=== PATIENT | female | born 1945 | race Caucasian/White ===

== ENCOUNTER 2017-09-25 07:49 | Day surgery (SDC) | payer MEDICARE ==
[~2017-09-25] VITALS: Ht 170.2 cm; Wt 108.9 kg
[~2017-09-25 07:49] MED LIST: METOPROLOL SUCC50 MG PO; OMEPRAZOLE20 MG PO
[2017-09-25] MEDS ORDERED: VITAMIN D-32000 UNI1 PO (08:03)
[2017-09-25] MEDS ORDERED: IRON18 MG PO (08:03)
--- NOTE | 2017-09-25 10:45 | NUR ---
09/25/17 1045 Rina Leavitt 1026 PT ARRIVED DROWSY AND WAKE OFF AND ON. PT DENIES PAIN AND NAUSEA. RESO EVEN AND UNLABORED. 1043 PT SITTING IN HIGH FOWLERS AND SIPPING WATER. PT ABLE TO PUT DENTURES IN HER MOUTH.
--- NOTE | 2017-10-31 09:17 | OR ---
[facility] [address], [place] [address] Signed DATE OF OPERATION: 09/25/2017 SURGEON: Kyara Sauceda MD PREOPERATIVE DIAGNOSES: 1. Iron deficiency anemia. 2. Mother with colon polyps in her 70s. 3. Personal history of colonic polyp at 20 cm in 2016. 4. Diverticulosis. 5. Internal hemorrhoids. POSTOPERATIVE DIAGNOSES: 1. Mild punctate hemorrhagic gastritis. 2. Moderate simpson diverticulosis. 3. Jdvmfwy-dm-wxelvyex internal hemorrhoids. PROCEDURES PERFORMED: 1. Esophagogastroduodenoscopy with CLOtest and biopsies of the antrum and pyloric bulb. 2. Colonoscopy without biopsy. ESTIMATED BLOOD LOSS: None. INDICATIONS FOR PROCEDURE: Janell is a 71-year-old female, who came to us in 2016 for a colonoscopy. We know that her mother had colonic polyps in her 70s and we found a polyp for Janell at 20 cm. She also has an extremely long redundant colon with a very long tortuous sigmoid colon. Consequently, her prep was not the best, we would ask her to come back on a short interval. She was also known to have internal hemorrhoids and simpson diverticulosis, but in the meantime, she did develop iron deficiency anemia and so she was asked to see me for both upper and lower endoscopy. I met with Janell and her , who I have known for quite some time. I gave them pamphlets on upper and lower endoscopy. We reviewed the nature of the 2 tests along with the risks including, but are not limited to gas bloating, crampy abdominal pain, bleeding, perforation, requiring surgery, and missed diagnosis. We also discussed the need for IV conscious sedation. She had expressed understanding and wished to proceed. DESCRIPTION OF PROCEDURE: Janell was taken into our endoscopy suite and placed in a supine semi-recumbent position. She was given preoperative antibiotics because of her joint replacements. The posterior oropharynx was anesthetized with Hurricaine spray. A bite block was Electronically Signed By: KYARA SAUCEDA MD 09/25/17 1138 Electronically Signed By: KYARA SAUCEDA MD 10/31/17 0920 PATIENT NAME: JANELL CORREA OPERATIVE REPORT DATE OF : 45 REPORT #: [id number] PHYSICIAN: KYARA SAUCEDA MD PCP: Norbert YODER MD REPORT IS CONFIDENTIAL AND NOT TO BE RELEASED WITHOUT AUTHORIZATION [facility] [address], [place] [address] Signed utilized for the case. The adult gastroscope was then introduced. She was given a total of 9 mg of Versed and 175 mcg of fentanyl to cover both cases. The adult gastroscope was passed out into the stomach and into the duodenum. The pyloric bulb showed a tiny bit of redness. We went ahead and took a biopsy in that area. The stomach showed some mild distal punctate hemorrhagic gastritis. We took biopsies of the antrum for CLOtest as well as pathologic review. Upon retroflexion of the scope, there was no hiatal hernia, there was no gastric or esophageal varices. The scope was withdrawn up through the area of the GE junction, which was compliant without stricture. The Z-line remains intact. There was no Gould's mucosa, no distal esophagitis. The middle and upper esophagus were unremarkable. After this, the gas was suctioned out, the gastroscope removed. Janell tolerated the upper endoscopy quite well. Janell was then rotated into the left lateral decubitus position. A digital rectal exam was then performed. This was unremarkable. The adult colonoscope was introduced and advanced under direct visualization. As before, she has a very long redundant tortuous colon. It took some time to get through the sigmoid colon and then the camera continued to drag in the sigmoid colon, so it took extra sedation and extra abdominal compression, and rotating Janell into the supine position in order to get the scope down to the cecum itself. She took a double prep this time and it was much better. Even then with her diverticula, she had stool scattered around the colon, although much improved from previously. The scope was then slowly withdrawn. We saw all the simpson diverticulosis. No polyps on this occasion. The rectum was unremarkable. She does have deusdvo-lf-ugqdtymw internal hemorrhoid columns. After this, the gas was suctioned out. The colonoscope removed. Janell tolerated the procedure well. RECOMMENDATIONS: I will see Janell back in my office in 7 to 14 days to review her results. Kyara Sauceda MD ALB/MODL /[id number] cc: Norbert Yoder MD Electronically Signed By: KYARA SAUCEDA MD 09/25/17 1138 Electronically Signed By: KYARA SAUCEDA MD 10/31/17 0920 PATIENT NAME: JANELL CORREA OPERATIVE REPORT DATE OF : 45 REPORT #: [id number] PHYSICIAN: KYARA SAUCEDA MD PCP: Norbert YODER MD REPORT IS CONFIDENTIAL AND NOT TO BE RELEASED WITHOUT AUTHORIZATION [facility] [address] [place], [place] [address] Signed Copies: Norbert YODER MD ~ Electronically Signed By: KYARA SAUCEDA MD 09/25/17 1138 Electronically Signed By: KYARA SAUCEDA MD 10/31/17 0920 PATIENT NAME: JANELL CORREA OPERATIVE REPORT DATE OF : 45 REPORT #: [id number] PHYSICIAN: KYARA SAUCEDA MD PCP: Norbert YODER MD REPORT IS CONFIDENTIAL AND NOT TO BE RELEASED WITHOUT AUTHORIZATION
== END 2017-09-25 11:05 | disposition home or self-care (01) ==
LOC: DS 07:49 → OPS 07:49 → DS 09:00 → OPS 09:00
PROVIDERS: Colon & Rectal Surgery
PROC: 0DB78ZX Excision of Stomach, Pylorus, Via Natural or Artificial Opening Endoscopic, Diagnostic (ICD-10-PCS; 2017-09-25)
PROC: 0DJD8ZZ Inspection of Lower Intestinal Tract, Via Natural or Artificial Opening Endoscopic (ICD-10-PCS; principal; 2017-09-25 09:00)
PROC: 0DB98ZX Excision of Duodenum, Via Natural or Artificial Opening Endoscopic, Diagnostic (ICD-10-PCS; 2017-09-25 09:00)
DX: K64.8 Other hemorrhoids (principal); K57.30 Diverticulosis of large intestine without perforation or abscess without bleeding; K29.51 Unspecified chronic gastritis with bleeding; K29.80 Duodenitis without bleeding; D50.9 Iron deficiency anemia, unspecified; I10 Essential (primary) hypertension; E78.5 Hyperlipidemia, unspecified; E55.9 Vitamin D deficiency, unspecified; E66.9 Obesity, unspecified; E03.9 Hypothyroidism, unspecified; Z98.890 Other specified postprocedural states; Z86.010 Personal history of colon polyps; Z83.71 Family history of colonic polyps; Z79.899 Other long term (current) drug therapy; Z87.891 Personal history of nicotine dependence; Z88.8 Allergy status to other drugs, medicaments and biological substances; Z68.38 Body mass index [BMI] 38.0-38.9, adult
CPT/HCPCS: 86677; 88305; 99153; G0500; J2250; J3010

== ENCOUNTER 2019-12-03 06:46 | Emergency (ER) | payer MEDICARE ==
[~2019-12-03] VITALS: Ht 170.2 cm; Wt 90.3 kg
--- OUTSIDE RECORDS SUMMARY | ~2019-12-03 | XMS | Encounter Summary ---
Demographics + + + | Address | [address] | | | [place] [address] | + + + | Home Phone | | + + + | Preferred Language | Unknown | + + + | Marital Status | | + + + | Voodoo Affiliation | Unknown | + + + | Race | Unknown | + + + | Ethnic Group | Unknown | + + + Author + + + | Author | [facility] | | | and [place] | + + + | Organization | [facility] | | | and [place] | + + + | Address | Unknown | + + + | Phone | Unavailable | + + + Support + + +---------+ + | Name | Relationship | Address | Phone | + + +---------+ + | Chirag A Eden | ECON | Unknown | | + + +---------+ + Care Team Providers + +------+ + | Care Assistant Customer Service Manager Name | Role | Phone | + +------+ + PCP | Unavailable | + +------+ + Encounter Details +--------+ + + + + | Date | Type | Department | Care Team | Description | +--------+ + + + + | 05/21/ | Hospital | [facility] | | | | 2000 - | Encounter | MED CTR GENERIC IP | | | | | | CONV DEPT [address] | | | | 05/24/ | | [place], | | | | 2000 | | [place] [address] | | | | | | [phone] | | | +--------+ + + + + Social History + +-------+ +--------+------+ | Tobacco Use | Types | Packs/Day | Years | Date | | | | | Used | | + +-------+ +--------+------+ | Never Assessed | | | | | + +-------+ +--------+------+ + + + | Sex Assigned at | Date Recorded | | | | + + + | Not on file | | + + + documented as of this encounter Plan of Treatment Not on filedocumented as of this encounter Visit Diagnoses Not on filedocumented in this encounter"
--- OUTSIDE RECORDS SUMMARY | ~2019-12-03 | XMS | Encounter Summary ---
Demographics + + + | Address | [address] | | | [place] [address] | + + + | Home Phone | | + + + | Preferred Language | Unknown | + + + | Marital Status | | + + + | Nondenominational Affiliation | Unknown | + + + | Race | Unknown | + + + | Ethnic Group | Unknown | + + + Author + + + | Author | [facility] | | | and [place] | + + + | Organization | [facility] | | | and [place] [...] Team Providers + +------+ + | Care Informaticist Name | Role | Phone | + +------+ + PCP | Unavailable | + +------+ + Encounter Details +--------+ + + + + | Date | Type | Department | Care Team | Description | +--------+ + + + + | 11/29/ | Hospital | [facility] | | | | 2003 - | Encounter | MED CTR WOMENS | | | | | | [facility] [address] | | | | 12/01/ | | [place], | | | | 2003 | | [place] [address] | | | | | | [phone] | | | +--------+ + + + [...]
--- OUTSIDE RECORDS SUMMARY | ~2019-12-03 | XMS | Encounter Summary ---
Demographics + + + | Address | [address] | | | [place] [address] | + + + | Home Phone | | + + + | Preferred Language | Unknown | + + + | Marital Status | | + + + | Judaism Affiliation | Unknown | + + + | Race | Unknown | + + + | Ethnic Group | Unknown | + + + Author + + + | Author | [facility] | | | and [place] | + + + | Organization | [facility] | | | and [place] | [...] Team Providers + +------+ + | Care Account General Manager Name | Role | Phone | + +------+ + PCP | Unavailable | + +------+ + Encounter Details +--------+ + + + + | Date | Type | Department | Care Team | Description | +--------+ + + + + | 11/22/ | Hospital | [facility] | | | | 2003 | Encounter | MED CTR LABORATORY | | | | | | [address] [place] [place] | | | | | | [place] | | | | | | [address] | | | | | | [phone] | | | +--------+ + + + [...]
--- OUTSIDE RECORDS SUMMARY | ~2019-12-03 | XMS | Encounter Summary ---
Demographics + + + | Address | [address] | | | [place] [address] | + + + | Home Phone | | + + + | Preferred Language | Unknown | + + + | Marital Status | | + + + | Jainism Affiliation | Unknown | + + + | Race | Unknown | + + + | Ethnic Group | Unknown | + + + Author + + + | Author | [facility] | | | and [place] | + + + | Organization | 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 | | [address] | | | | | hip Primary | | [place] | | | | | | | [address] | | | | | osteoarthrit | | Phone: | | | | | is of left | | [phone] | | | | | hip [M16.12] | | Fax: | | | | | Procedures | | [phone] | | | | | [place] TOTAL | | | | | | | HIP | | | | | | | ARTHROPLASTY | | | +--------+--------+ + + + + Encounter Details +--------+ + + + + | Date | Type | Department | Care Team | Description | +--------+ + + + + | 04/27/ | Hospital | [facility] | Jeff Yeh MD | | | 2015 | Encounter | MED CTR XRAY [address] | [address] [facility] | | | | | [place] | [place] | | | | | [place] [address] | [address] | | | | | [phone] | [phone] | | | | | | | | +--------+ + + + + Social History + + + +--------+ + | Tobacco Use | Types | Packs/Day | Years | Date | | | | | Used | | + + + +--------+ + | Former Smoker | Cigarettes | 0.1 | 10 | Quit: 05/14/1989 | + + + +--------+ + + +---+---+---+ | Smokeless Tobacco: | | | | | Never Used | | | | + +---+---+---+ + + +---------+ + | Alcohol Use | Drinks/Week | oz/Week | Comments | + + +---------+ + | No | | | | + + +---------+ + + + + | Sex Assigned at | Date Recorded | | | | + + + | Not on file | | + + + documented as of this encounter Medications at Time of Discharge + + + +---------+ + + | Medication | Sig | Dispensed | Refills | Start | End Date | | | | | | Date | | + + + +---------+ + + | | Take 1 - 2 tablets | 30 | 0 | 12/18/20 | | | HYDROcodone-acetamin | by mouth EVERY 4 to | tablet | | 15 | | | ophen (NORCO) | 6 HOURS NEEDED | | | | | | 7.5-325 mg per | for Pain. | | | | | | tablet | | | | | | + + + +---------+ + + | metoprolol | Take 50 mg by mouth | | 0 | | | | tartrate (LOPRESSOR) | every evening. | | | | | | 50 mg tablet | | | | | | + + + +---------+ + + | aspirin 325 mg | Take 1 tablet by | 56 | 0 | 04/30/20 | | | tablet | mouth 2 times daily | tablet | | 15 | 6 | | | for 28 days. | | | | | + + + +---------+ + + | naproxen | Take 250 mg by mouth | | 0 | | | | (NAPROSYN) 250 mg | Twice daily as | | | | 5 | | tablet | needed. | | | | | + + + +---------+ + + documented as of this encounter Plan of Treatment Not on filedocumented as of this encounter Procedures + +--------+ + + + | Procedure Name | Priori | Date/Time | Associated Diagnosis | Comments | | | ty | | | | + +--------+ + + + | XR PELVIS 1 OR 2 VW | Routin | 04/27/2015 | | Results for this | | | e | 3:33 PM | | procedure are in the | | | | PST | | results section. | + +--------+ + + + documented in this encounter Results XR Pelvis 1 or 2 Vw (04/27/2015 3:33 PM PST) + + | Specimen | + + | | + + + + + | Narrative | Performed At | + + + | XR PELVIS 1 OR 2 VW 04/27/2015 3:18 PM HISTORY: intra op. | [facility] | | COMPARISON: Multiple priors FINDINGS: Intraoperative x-rays show | | | placement of hardware for left hip arthroplasty. IMPRESSION - | | | Left hip arthroplasty. Dictated and Signed by: Darvin Plata MD | | | Electronically signed: 04/27/2015 4:15 PM | | + + + + + | Procedure Note | + + | Doug, Rad Results In - 04/27/2015 4:19 PM PST XR PELVIS 1 OR 2 VW 04/27/2015 3:18 PM | | | | HISTORY: intra op. | | | | COMPARISON: Multiple priors | | | | FINDINGS: | | Intraoperative x-rays show placement of hardware for left hip arthroplasty. | | | | IMPRESSION - | | Left hip arthroplasty. | | | | Dictated and Signed by: Darvin Plata MD | | Electronically signed: 04/27/2015 4:15 PM | + + + +---------+ + + | Performing | Address | City/State/Zipcode | Phone Number | | Organization | | | | + +---------+ + + | [facility] | | | | + +---------+ + + documented in this encounter Visit Diagnoses Not on filedocumented in this encounter"
--- OUTSIDE RECORDS SUMMARY | ~2019-12-03 | XMS | Encounter Summary ---
Demographics + + + | Address | [address] | | | [place] [address] | + + + | Home Phone | | + + + | Preferred Language | Unknown | + + + | Marital Status | | + + + | Temple Affiliation | Unknown | + + + | Race | Unknown | + + + | Ethnic Group | Unknown | + + + Author + + + | Author | [facility] | | | and [place] | + + + | Organization | [facility] | | | and [...] Team Providers + +------+ + | Care Communications Technician Name | Role | Phone | + +------+ + PCP | Unavailable | + +------+ + Encounter Details +--------+ + + + + | Date | Type | Department | Care Team | Description | +--------+ + + + + | 05/01/ | Hospital | [facility] | | | | 1999 - | Encounter | MED CTR GENERIC OP | | | | | | CONV DEPT [address] | | | | 05/21/ | | [place], | | | | 2000 | | [place] [address] | | | | | | [phone] | | | +--------+ + + + [...]
--- OUTSIDE RECORDS SUMMARY | ~2019-12-03 | XMS | Encounter Summary ---
Demographics + + + | Address | [address] | | | [place] [address] | + + + | Home Phone | | + + + | Preferred Language | Unknown | + + + | Marital Status | | + + + | Synagogue Affiliation | Unknown | + + + | Race | Unknown | + + + | Ethnic Group | Unknown | + + + Author + + + | Author | [facility] | | | and [place] | + + + | Organization | [facility] | | | and [place] | [...] Team Providers + +------+ + | Care Systems Requirements Planner Name | Role | Phone | + [...] | is of left | | [facility] | | | | | hip Primary | | [place] | | | | | | | [address] | | | | | osteoarthrit | | Phone: | | | | | is of left | | [phone] | | | | | hip [M16.12] | | Fax: | | | | | Procedures | | [phone] | | | | | [place] TOTAL | | | | | | | HIP | | | | | | | ARTHROPLASTY | | | +--------+--------+ + + + + Encounter Details +--------+ + + + + | Date | Type | Department | Care Team | Description | +--------+ + + + + | 04/27/ | Hospital | [facility] | Jeff Yeh MD | Status post total | | 2015 - | Encounter | MED [facility] SUR[facility] | [address] | replacement of left | | | | [address] [place] | [place] | hip (Primary Dx) | | 04/30/ | | [place] [address] | [phone] | | | 2015 | | [phone] | [phone] | | | | | | | [...] + + documented as of this encounter Last Filed Vital Signs + + + + + | Vital Sign | Reading | Time Taken | Comments | + + + + + | Blood Pressure | 134/67 | 04/30/2015 8:00 AM | | | | | PST | | + + + + + | Pulse | 83 | 04/30/2015 8:00 AM | | | | | PST | | + + + + + | Temperature | 36.8 C (98.2 F) | 04/30/2015 8:00 AM | | | | | PST | | + + + + + | Respiratory Rate | 18 | 04/30/2015 8:00 AM | | | | | PST | | + + + + + | Oxygen Saturation | 96% | 04/30/2015 8:00 AM | | | | | PST | | + + + + + | Inhaled Oxygen | - | - | | | Concentration | | | | + + + + + | Weight | 117.9 kg (260 lb) | 04/27/2015 5:30 PM | | | | | PST | | + + + + + | Height | 170.2 cm (5' 7") | 04/27/2015 5:30 PM | | | | | PST | | + + + + + | Body Mass Index | 40.72 | 04/27/2015 5:30 PM | | | | | PST | | + + + + + documented in this encounter Discharge Summaries Meenakshi Phan PA-C - 04/29/2015 4:50 PM PSTFormatting of this note might be differe nt from the original. TOTAL HIP ARTHROPLASTY DISCHARGE SUMMARY ADMISSION DATE: 04/27/2015 DISCHARGE DATE: 04/30/15 ADMITTING DIAGNOSIS: Left hip degenerative joint disease. DISCHARGE DIAGNOSIS: 1. Left hip degenerative joint disease. 2. Syncope, orthostatic induce d MAJOR INTERVENTION:Left total hip arthroplasty. DISCHARGE DISPOSITION: The patient is being discharged to home and will do home-directed ex ercises on an outpatient basis. Hip dislocation precautions have been instructed to the lauri ent and the incision will be kept clean and dry. Weight-bearing is as tolerated with a walke r. A follow up appointment has been scheduled in my office in 5-7 days for a wound check, st aple removal and radiographs. DISCHARGE MEDICATIONS The patient will resume her usual medications. In addition,she will take: Aspirin 325mg BID daily x 4 weeks. Lortab 7.5/325 as needed for pain. HOSPITAL COURSE: The patient was admitted and taken to the operating room, at which time, s he underwent a left total hip arthroplasty without complications. For further details, kathryn steele see the dictated operative report in the chart. Postoperatively, the patient did well, remained afebrile, with stable vital signs. Postoper atively, there was an intact neurovascular examination in her left lower limb. The patient received Ancef preoperatively and for 24 hours postoperatively, and had no sign s or symptoms of infection. The patient had minimal bleeding on the evening of the surgery, that resolved, and her wound was with very minimal drainage by the time of her discharge. The patient was started on Aspirin 325mg BID the day after surgery. There was no evidence of thromboembolic disease. Hematocrit stabilized at Lab Results Component Value Date HCT 26.4* 04/29/2015 . There was no need for a blood transfusion. The patient was seen by physical therapy and allowed weightbearing as tolerated with a walk er, progressing very well with her mobility. she was ready for discharge home on postop day number three. documented in t his encounter Discharge Instructions Instructions Zoe Olson, PharmD - 04/29/2015 Discharge Instructions for Hip Replacement Surgery You had a hip replacement surgery. This means your natural hip was replaced with an artific ial joint (prosthesis). You may be recovering at home or in a rehabilitation facility. Eithe r way, you must take care of your new hip. Do this by moving and sitting the way you were ta ught in the hospital. Also, be sure to see your doctor for follow-up visits, and return to a ctivity slowly. Because a total hip replacement is major surgery, it will be a few months be fore you can move comfortably. Home Care Take your medications exactly as directed on the separate Medication Reconciliation shee t. Typically you will resume your routine medications and in addition will have a prescripti on a pain pill. You will also take aspirin 325mg twice daily for four weeks. Please pick t his up at your pharmacy [id number], the enteric coated (EC) are preferred to protect y our stomach. Do not take ani-inflammatories (NSAIDs) while on this high dose aspirin. Thi s includes ibuprofen, motrin, aleve, naproxen, Advil and baby (81mg) aspirin. You may resum e those as needed after finished with this high dose aspirin. Tylenol (acetaminophen) and y our pain pill are safe to take. Don t drive until your doctor says it s okay. And never drivewhile taking narcotic pain medication. Wear the support stockings you were given in the hospital. Wear them for 6 weeks post-op eratively To relieve discomfort at night, get up and move around as needed Incision Care A waterproof (Aquacel) dressing has been applied. It is OK to shower with this in place. NO tub soaks. Leave this Aquacel dressing in place until your first post-op visit unless it becomes wet or visibly soiled. Avoid infection by washing your hands often. If an infection occurs, it will need to be treated immediately. So call your doctorright awayif you think you may have an infection . Symptoms include a fever or an incision that leaks white, green, or yellow fluid. Avoid soaking yourincision in water (no hot tubs, bathtubs, swimming pools) until your doctor says it s okay. Sitting and Sleeping It is ok to sleep on your side, just remember to place a pillow between your knees Moving Safely Use a walker for 4 weeks. And remember to ask for help from others when you need it. Follow the posterior hip precautions You may put as much weight as is comfortable on the affected leg unless you have been to ld otherwise. Walk often and do theprescribed exercises as instructed. Arrange your household to keep the items you need within reach. Remove electrical cords, throw rugs, and anything else that may cause you to fall. Use nonslip bath mats, grab bars, an elevated toilet seat, and a shower chair in your ba throom. Follow-Up Make sure you keep the follow-up appointment with scheduled about 10 days from your surgery date. You may confirm the appointment date and time by calling [phone] When to Seek Medical Attention Call [phone] right awayif you have any of the following: Chest pain Shortness of breath Otherwise, call your doctor immediately if you have any of the following: Increased hip pain Pain or swelling in your calf or leg Fever [id number] shaking chills Excessive swelling, increased drainage or redness around the incision Swelling, tenderness, or cramps in your leg Do not exceed 4,000 mg of acetaminophen (Tylenol) per day. Hydrocodone-acetaminophen ([place] ) and Oxycodone-acetaminophen (Percocet) have 325 mg acetaminophen per tablet. Regular stre ngth acetaminophen is 325 mg per tablet. Extra strength has 500 mg per tablet. Do not take ani-inflammatories (NSAIDs) while on this high dose aspirin. This includes ibu profen, motrin, aleve, naproxen, Advil and baby (81mg) aspirin. Do not consume alcohol while taking opioid mediations. If constipation arises, try docusate-senna one tablet twice daily; milk of magnesia 30 mL o nce each night; or Miralax one capful (17 grams) dissolved in half a cup of water once daily for 3 days. If constipation does not resolve within 3 days after discharge, contact the do solange's office. documented in this encounter Medications at Time of Discharge [...] + + documented as of this encounter Progress Notes Zoe Olson, PharmD - 04/30/2015 10:00 AM Rowena Harmon is s/p left total hip arthroplasty and discharged home today (04/30/2015) Taught AVS education to patient. Educated patient on new blood thinner and pain medications . I explained indication, how to take, possible side effects, when to contact physician, and monitor parameters. We discussed aspirin: S/S clotting (stroke/DVt/PE), bleeding (bruising, bleeding, GI/), a voidance of additional NSAIDs, and when to seek medical attention. The patient was encourage d to ambulate often and to participate in PT. We discussed not to exceed 4,000 mg of acetaminophen per day. Patient was advised not to co nsume alcohol while taking opioid mediations. We discussed normal bowel movements should be about 1 to 2 per week, if constipation should arise patient may try senna-s, milk of mag or Miralax OTC. The patient verbalized understanding of the above and all questions were answered. Pharmaci st will follow-up with patient in one to two business days. Patient was provided with a cristal nciled discharge medication list as part of their AVS instructions. Encouraged patient to sh are medication list with healthcare providers and keep list current. Zoe Olson PHARMD 04/30/2015 10:00 Meenakshi Mcgee PA-C - 04/29/2015 7:31 AM PSTFormatting of this note might be different from the origin al. Subjective: Post-Operative Day: 2 Days Post-Op Status Post AMAURY Left Systemic or Specific Complaints:Mild incisional pain, doing well. No new syncopal episodes . Objective: Patient Vitals for the past 24 hrs: BP Temp Temp src Pulse Resp SpO2 04/28/15 2300 133/51 mmHg 36.2 C (97.2 F) Oral 67 16 91 % 04/28/152036 - - - - - 93 % 04/28/15 1910 129/52 mmHg 36.3 C (97.3 F) Oral 73 16 93 % 04/28/15 1800 144/62 mmHg - - 69 18 96 % 04/28/15 1613 - - - 67 - 93 % 04/28/15 1530 - - - 62 - 97 % 04/28/15 1409 141/53 mmHg - - 67 17 99 % 04/28/15 1332 118/56 mmHg - - 65 18 99 % 04/28/15 1224 119/43 mmHg - - 65 - - 04/28/15 1154 127/62 mmHg 36.8 C (98.2 F) Oral 62 - 99 % 04/28/15 1151 129/54 mmHg - - 57 18 100 % 04/28/15 1135 - - - 62 - 96 % 04/28/15 1130 108/54 mmHg - - 61 17 91 % 04/28/15 1125 - - - 59 - 90 % 04/28/15 1122 94/54 mmHg - - 57 16 92 % 04/28/15 0733 142/64 mmHg 36.8 C (98.2 F) Oral 61 18 93 % I/O last 24 Hours: In: 3501 [P.O.:2602; I.V.:399; IV Piggyback:500] Out: 4175 [Urine:4175] General: Alert and oriented, no distress Wound: Wound clean and dry no evidence of infection. Operative limb: Circulation: warm, well perfused, No evidence of DVT seen on physical exam. CMS: Neuro : intact Data Review Recent Results (from the past 24 hour(s)) Hemoglobin and Hematocrit Result Value Ref Range Hgb 8.3 (L) 11.5-16.0 g/dL Hct 26.4 (L) 34.0-47.0 % Assessment: Status Post AMAURY Expected acute blood loss anemia Doing well Nurse reported concern for moderately low O2 sats BPs improved Plan: Continue current postoperative course Anemia protocol PT for ambulation, ROM OT for ADLs Encourage IS and deep breathing Anticipate discharge tomorrow Christiana Oliveira RN - 04/28/2015 2:10 PM PSTPt visiting with family, vss, ate a good lunch and sta chase she feels so much better. IV bolus completed Electronically signed by: Christiana Encinsa RN 04/28/2015 14:11 Christiana Birmingham RN - 04/28/2015 11:46 AM PSTPt states feeling much better, no further nausea, bp now 129/54, hr 60. No dizziness, left hip drsg clean dry and intact. Cms intact. Phone call to Dr. Yeh and reported pts fainting episode with physical therapy and change in vs , orders received, IV bolus started. Electronically signed by: Christiana Encinas RN 04/28/2015 11:50 Christiana Birmingham RN - 04/28/2015 11:24 AM PSTCalled to room by physical therapy who reports pt go t dizzy when oob with brief loss of conciousness and incontinence of urine, placed back in b ed bps systolic in 80s and now systolic in 90s, pt alert slight nausea but no longer dizzy w hile laying in bed with hob elevated 20 degrees. Reconnected to IV fluids. 1128 bp 108/58, hr 60 sat 91 on room air, placed on o2 2lnc. Resp therapist here. Electronically signed by: Christiana Encinas RN 04/28/2015 11:29 Jeff Cohen MD - 04/28/2015 7:53 AM PST Subjective: Post-Operative Day: 1 Day Post-Op Status Post Left AMAURY Systemic or Specific Complaints: Minimal pain Objective: Patient Vitals for the past 24 hrs: BP Temp Temp src Pulse Resp SpO2 Height Weight 04/28/15 0733 142/64 mmHg 36.8 C (98.2 F) Oral 61 18 93 % - - 04/28/15 0400 147/72 mmHg 36.3 C (97.3 F) Oral 59 18 93 % - - 04/28/15 0201 - - - 66 18 100 % - - 04/28/15 0000 151/59 mmHg 37.1 C (98.8 F) Oral 63 18 95 % - - 04/27/152099 126/59 mmHg - - 56 18 91 % - - 04/27/152009 - 35.9 C (96.6 F) Oral - - - - - 04/27/151999 128/61 mmHg - - 53 18 - - - 04/27/15 183 131/57 mmHg - - 60 - - - - 04/27/15 180 - - - 59 16 94 % - - 04/27/15 1800 127/60 mmHg - - 59 16 99 % - - 04/27/15 1730 109/47 mmHg 35.7 C (96.3 F) - 61 16 100 % 1.702 m (5' 7") 117.935 kg (260 lb) 04/27/15 1705 138/68 mmHg - - 75 14 94 % - - 04/27/15 1652 145/73 mmHg - - 86 15 94 % - - 04/27/15 1647 139/71 mmHg - - 90 15 94 % - - 04/27/15 1632 147/68 mmHg - - 91 16 97 % - - 04/27/15 1627 134/85 mmHg - - 98 24 96 % - - 04/27/15 1625 - - - 92 18 (!) 87 % - - 04/27/15 1622 135/77 mmHg 36.8 C (98.2 F) Skin 98 16 94 % - - 04/27/15 1100 172/90 mmHg 36.7 C (98.1 F) Temporal 69 16 95 % 1.702 m (5' 7") 117.935 k g (260 lb) I/O last 24 Hours: In: 2340 [P.O.:1090; I.V.:1250] Out: 875 [Urine:575; Blood:300] General: Alert and oriented, no distress Bandage clean, dry, intact Circulation: Left foot warm and well-perfused Neuro : 5/5 strength of left ankle flexion and extension; sensation intact to light touch o n dorsal and plantar surfaces of foot Data Review Recent Results (from the past 24 hour(s)) Hemoglobin and Hematocrit Result Value Ref Range Hgb 10.3 (L) 11.5-16.0 g/dL Hct 32.5 (L) 34.0-47.0 % Extra Green Top Tube Result Value Ref Range Extra Green Top Tube Done Assessment: 1 Day Post-Op status post left AMAURY Expected minimal acute blood loss anemia Plan: Continue current postoperative course Aspirin for DVT prophylaxis Physical therapy for gait training documented in this enc ounter H&P Notes Jeff Yeh MD - 04/27/2015 2:18 PM [facility] SURGICAL INTERIM HISTORY AND PHYSICAL UPDATE Pt. Name/Age/: Zeenat Harmon 69 y.o. 1945 Date of admission: 04/27/2015 The current H&P was reviewed. The patient was reexamined. Re-evaluation of the patient co nfirms the necessity for the scheduled procedure. No change has occurred in the patient s condition since the H&P was completed less than 30 days ago. Electronically signed by: Jeff Yeh, 04/27/2015 14:19 ARBOR HEALTHElectronically signed by Jeff Yeh MD at 04/27 2:19 PM Meenakshi Mcgee PA-C - 04/26/2015 8:30 AM PSTClinic Note Chief complaint: Left hip pain History of present illness: Mrs. Harmon is a 69-year-old woman who is seen today regarding a painful left hip. Patient reports onset in June or July without incident or injury. P ain has gradually gotten worse. She feels the pain anterolaterally and radiating into the gr oin and sometimes down to the knee. It is worse when she tries to abduct the hip or to pull the left leg up into a car. She has pain with walking and even standing. She denies any neur ological symptoms. A cortisone injection this past summer gave only very brief relief. PMH: PCP is Dr. Yoder in [place]. Obesity, hypertension and osteoarthritis PSH: Bilateral total knee arthroplasties: left side in 1996 in [place] and the right side in [address] Butt here in [place] Allergies: None Medications: Metoprolol 50 mg p.o. daily and l-thyroxine 75 mcg p.o. daily Social history: The patient is . She does not use tobacco or alcohol. Review of systems: Negative on the patient information sheet. She has no history of thrombo embolic disease. Physical examination: An obese older woman in no acute distress. HEENT: Atraumatic, normocephalic and anicteric. Skin is warm and dry. Chest: clear to auscultation Cor: regular pulse Orthopedic: Examination of the lower limbs shows the left side to be 1/4 inch shorter than the right. Left hip range of motion is moderately diminished with abduction to 30 causing groin pain, internal rotation of 10 with the hip flexed causing groin pain, external rotat ion in flexion to 45 and without pain. There is no hip flexion contracture although full e xtension is painful. Distal examination shows no cyanosis, clubbing or edema. There is a 2+ dorsalis pedis and p osterior tibial pulse. There is full strength of ankle extension and flexion. Patient states normal sensation to light touch on the dorsal and plantar surfaces of both feet. Radiographs: Plain films of the left hip obtained in December showed moderate arthrosis with joint space narrowing. The right hip shows mild degenerative changes. Impression and plan: 69 year-old female with moderately arthritic left hip with progressive symptoms refractory to conservative care. At this point, she desires to proceed with a left total hip arthroplasty. We reviewed with her the nature of total hip arthroplasty surgery, the multiple potential risks involved and expected recovery afterward. We discussed options for postoperative DVT prophylaxis. She is comfortable using aspirin instead of warfarin, giv en her relatively low risk profile for thromboembolic disease. She desires to proceed with t he surgery and gives informed consent in writing. Surgical History History of Neuroplasty Decompression Median Nerve At Carpal Tunnel Family History Mother Family history of arthritis (Z82.61) Family history of hypertension (Z82.49) Family history of stroke (Z82.3) Father Family history of stroke (Z82.3) Current Meds Levothyroxine Sodium 75 MCG Oral Tablet; Therapy: (Recorded:10Jun2014) to Recorded Metoprolol Tartrate 50 MG Oral Tablet; Therapy: (Recorded:10Jun2014) to Recorded Allergies No Known Drug Allergies Plan BMP (Basic Metabolic Panel); Status:Active; Requested for:12Apr2015; CBC W/ Auto Diff; Status:Active; Requested for:12Apr2015; Signatures Electronically signed by : Jeff Yeh MD; Apr 12 2015 11:06AM PST (Author) documented in t his encounter Nursing Notes Meenakshi Marquez RN - 04/27/2015 4:29 PM PSTX ray done. documented in this encounter Miscellaneous Notes Plan of Care - Lauro Webster, PT - 04/30/2015 5:01 PM PSTMissed Visit Patient Information Patient Name: Zeenat Harmon Date of : 1945 Age: 69 y.o. The patient was unable to be seen for today's scheduled visit due to pt already DC home. Plan: DC PT Electronically signed by: Lauro Webster PT, 04/30/2015 17:02 lan of [place] - Stephenie Burns - 04/30/2015 10:47 AM PSTMet with patient today. IMM given and explained. She is up independent and will not have any other discharge needs. Her FWW was delivered yesterd ay. Her spouse will transport her home today. Electronically signed by: Stephenie Byrd 04/30/2015 10:48 lan of [place] - Josiane Rothman PT - 04/30/2015 9:02 AM PSTProblem: Patient Care Overview (Adult) Goal: Care Team Goals & Evaluation PROBLEM-RELATED GOALS: 1.Will meet 75% of predicted goal of 2400 by 04/30/15. 2.Pt will have manageable pain with po medication without nausea by 04/30/15 3.Pt will understand and follow hip precautions without reinforcements by 04/30/15 4. Pt will be free of infection by 04/30/15 5. Pt will be able to transfer, walk, and do a stair following precautions with a walker by 04/30/15 STRATEGY TO ACHIEVE GOALS: Instruct patient in the use of Incentive Spirometry and/or deep breath and cough. Nursing a nd Respiratory to work together to have patient use every hour while awake. Respiratory to m onitor progress 4 times daily until 75% goal met then turn over to nursing. 2.Medicate pt using the standard pain scale 0-10 to keep pain down to tolerable 2/10 pain. Teach pt when to call for pain med to keep pain at a tolerable place. Medicate toward the go al of tolerating pain on po pain meds. 3. Teach and reinforce hip precautions. Make sure abductor pillow is on in bed. Assess inci jordi and drsg To keep wound clean dry and intact. Advance diet as pt tolerates and encourage to eat to assist in wound healing. 4. PT and OT And nurse, SALES PROJECT ENGINEER work with pt to increase mobility with safety and following hip precautions. RESTRAINT-RELATED GOALS: STRATEGIES TO ACHIEVE RESTRAINT GOALS: Goal Evaluation: Physical Therapy Daily Treatment Note Patient Information Patient Name: Zeenat Harmon Date of : 1945 Age: 69 y.o. Precautions/Limitations: falls Left Upper Extremity Weight-Bearing: weight-bearing as tolerated Right Upper Extremity Weight-Bearing: full weight-bearing Left Lower Extremity Weight-Bearing: full weight-bearing Right Lower Extremity Weight-Bearing: full weight-bearing Start Time: 0836 Stop time: 0849 Time Calculation: 13 minutes Missed Treatment Time: minutes Total Treatment Time: 13 minutes TimedTreatment Code Minutes: 13 minutes Subjective: Pt eager to get home. Pt says she has no concerns about returning home and that she will have lots of help. Objective: Treatment Provided: Pt received up in chair. Pt mod I with sit to stand then supervision fo r 200ft gait. Pt turned to her left quickly during gait causing IR of LLE so patient was edu cated in how to follow hip precautions during turning to avoid IR. Pt back to room and revie wed HEP packet. Pt left up in chair with all needs within reach. Education: hip prec Patient Status/Goals: Reflects last filed data of patient status; may be from multiple contributors. Gait pt with IR of LLE during turn, so educated pt about following precautions during turning Level of [place] : supervision required Assistive Device: 2 wheeled walker (FWW) Distance (feet): 200ft Gait Pattern Analysis: 2-point gait Gait Deviations: stride length decreased, weight-shifting ability decreased, jane decrea sed, step length decreased Transfers Pt using FWW safely and approapirately, without cues Sit-Stand, Level of [place]: modified independence Stand-Sit, Level of [place]: modified independence [id number], Assistive Device: 2 wheeled walker (FWW) Maintain Weight Bearing Status: able to maintain weight bearing status Safety Issues: balance decreased during turns Impairments: strength decreased, impaired balance STG GOALS Bed Mobility Goal, Activity Type: supine to sit/sit to supine [place] Level: modified independence Assistive Device: bed rails Time to Achieve: 2 - 3 days Goal Status: not addressed Transfer Training Goal, Activity Type: bed to chair /chair to bed [place] Level: modified independence Assistive Device: 2 wheeled walker (FWW) Time to Achieve: 2 - 3 days Goal Status: not addressed Gait Training Goal, [place] Level: modified independence Assistive Device: 2 wheeled walker (FWW) Time to Achieve: 2 - 3 days Goal Status: progressing toward goal Stairs Goal, [place] Level: modified independence Number of Stairs: 4 Time to Achieve: 2 - 3 days Goal Status: progressing toward goal Assessment: Pt has met levels of mobility for safe mobility at home with help as needed. Pt understands hip precautions and HEP. Pt will be discharged from PT. Physical Therapy Anticipated Discharge Needs are: Home with assist as needed Have the anticipated discharge needs changed? no Post discharge physical therapy recommendation: Plan for next treatment: discharge Electronically signed by: Blanca Rothman, PT, 04/30/2015 8:56 lan of Care - Cici Hines RN - 04/30/2015 4:46 AM PSTProblem: Patient Care Overview (Adult) Goal: Care Team Goals & Evaluation PROBLEM-RELATED GOALS: 1.Will meet 75% of predicted goal of 2400 by 04/30/15. 2.Pt will have manageable pain with po medication without nausea by 04/30/15 3.Pt will understand and follow hip precautions without reinforcements by 04/30/15 4. Pt will be free of infection by 04/30/15 5. Pt will be able to transfer, walk, and do a stair following precautions with a walker by 04/30/15 STRATEGY TO ACHIEVE GOALS: Instruct patient in the use of Incentive Spirometry and/or deep breath and cough. Nursing a nd Respiratory to work together to have patient use every hour while awake. Respiratory to m onitor progress 4 times daily until 75% goal met then turn over to nursing. 2.Medicate pt using the standard pain scale 0-10 to keep pain down to tolerable 2/10 pain. Teach pt when to call for pain med to keep pain at a tolerable place. Medicate toward the go al of tolerating pain on po pain meds. 3. Teach and reinforce hip precautions. Make sure abductor pillow is on in bed. Assess inci jordi and drsg To keep wound clean dry and intact. Advance diet as pt tolerates and encourage to eat to assist in wound healing. 4. PT and OT And nurse, SALES PROJECT ENGINEER work with pt to increase mobility with safety and following hip precautions. RESTRAINT-RELATED GOALS: STRATEGIES TO ACHIEVE RESTRAINT GOALS: Outcome: Improving Goal Evaluation: Pt c/o no pain or N/V. Follows hip precautions, and transfers, walks well SBA c FWW. No s/ s of infection. lan of Care - Lauro Caballero, PT - 04/29/2015 5:42 PM PSTProblem: Patient Care Overview (Adult) Goal: Care Team Goals & Evaluation PROBLEM-RELATED GOALS: 1.Will meet 75% of predicted goal of 2400 by 04/30/15. 2.Pt will have manageable pain with po medication without nausea by 04/30/15 3.Pt will understand and follow hip precautions without reinforcements by 04/30/15 4. Pt will be free of infection by 04/30/15 5. Pt will be able to transfer, walk, and do a stair following precautions with a walker by 04/30/15 STRATEGY TO ACHIEVE GOALS: Instruct patient in the use of Incentive Spirometry and/or deep breath and cough. Nursing a nd Respiratory to work together to have patient use every hour while awake. Respiratory to m onitor progress 4 times daily until 75% goal met then turn over to nursing. 2.Medicate pt using the standard pain scale 0-10 to keep pain down to tolerable 2/10 pain. Teach pt when to call for pain med to keep pain at a tolerable place. Medicate toward the go al of tolerating pain on po pain meds. 3. Teach and reinforce hip precautions. Make sure abductor pillow is on in bed. Assess inci jordi and drsg To keep wound clean dry and intact. Advance diet as pt tolerates and encourage to eat to assist in wound healing. 4. PT and OT And nurse, SALES PROJECT ENGINEER work with pt to increase mobility with safety and following hip precautions. RESTRAINT-RELATED GOALS: STRATEGIES TO ACHIEVE RESTRAINT GOALS: Outcome: Improving Physical Therapy Daily Treatment Note Patient Information Patient Name: Zeenat Harmon Date of : 1945 Age: 69 y.o. Precautions/Limitations: falls Left Upper Extremity Weight-Bearing: weight-bearing as tolerated Right Upper Extremity Weight-Bearing: full weight-bearing Left Lower Extremity Weight-Bearing: full weight-bearing Right Lower Extremity Weight-Bearing: full weight-bearing Start Time: 1700 Stop time: 1723 Time Calculation: 23 minutes Missed Treatment Time: minutes Total Treatment Time: 23 minutes TimedTreatment Code Minutes: 23 minutes Subjective: pt sitting up in chair, agreeable Objective: Treatment Provided: Pt seen for functional moblity, gait and stair training. See notes mare beckford Handed off to nursing after tx. Education: HEP review Patient Status/Goals: Reflects last filed data of patient status; may be from multiple contributors. Gait fww Level of [place] : supervision required Assistive Device: 2 wheeled walker (FWW) Distance (feet): 250 Gait Pattern Analysis: 2-point gait Gait Deviations: stride length decreased, weight-shifting ability decreased, jane decrea sed, step length decreased Stairs up and down 1x 6 in step with rail CGA for safety Transfers Pt using FWW safely and approapirately, without cues Bed-Chair, Level of [place]: supervision required, verbal cues required Chair-Bed, Level of [place]: supervision required [id number], Assistive Device: 2 wheeled walker (FWW) Sit-Stand, Level of [place]: supervision required Stand-Sit, Level of [place]: supervision required [id number], Assistive Device: 2 wheeled walker (FWW) Toilet, Level of [place]: supervision required Toilet, Assistive Device: 2 wheeled walker (FWW) Maintain Weight Bearing Status: able to maintain weight bearing status Safety Issues: balance decreased during turns Impairments: strength decreased, impaired balance Bed Mobility supervsied with cues to use arms and strong leg to move effected leg. Assistive Device: bed rails Roll Left, Level of [place]: supervision required, verbal cues required Supine to Sit, Level of [place]: supervision required, verbal cues required Sit to Supine, Level of [place]: supervision required, verbal cues required Sidelying to Sit, Level of [place]: supervision required Sit to Sidelying, Level of [place]: supervision required Safety Issues: decreased use of legs for bridging/pushing Impairments: ROM decreased, pain, strength decreased Balance good Functional Endurance good ROM LLE limited by hip prec and pain Strength LLE limited by hip prec and pain STG GOALS Bed Mobility Goal, Activity Type: supine to sit/sit to supine [place] Level: modified independence Assistive Device: bed rails Time to Achieve: 2 - 3 days Goal Status: continued, progressing toward goal Transfer Training Goal, Activity Type: bed to chair /chair to bed [place] Level: modified independence Assistive Device: 2 wheeled walker (FWW) Time to Achieve: 2 - 3 days Goal Status: continued, progressing toward goal Gait Training Goal, [place] Level: modified independence Assistive Device: 2 wheeled walker (FWW) Time to Achieve: 2 - 3 days Goal Status: continued, progressing toward goal Stairs Goal, [place] Level: modified independence Number of Stairs: 4 Time to Achieve: 2 - 3 days Goal Status: continued, progressing toward goal Assessment: Pt doing well overall, will benefit from ongoing PT to incraese functional mobi lity and safety. Physical Therapy Anticipated Discharge Needs are: Have the anticipated discharge needs changed? yes - pt states she wants to go home tomorrow . operations mgr aware. Post discharge physical therapy recommendation: [facility] Plan for next treatment: 1P, JPM, FWW, progressive gait and mobility, Electronically signed by: Lauro Webster PT, 04/29/2015 17:40 lan of Care - Lauro Webster PT - 04/29/2015 5:37 PM PSTProblem: Patient Care Overview (Adult) Goal: Care Team Goals & Evaluation PROBLEM-RELATED GOALS: 1.Will meet 75% of predicted goal of 2400 by 04/30/15. 2.Pt will have manageable pain with po medication without nausea by 04/30/15 3.Pt will understand and follow hip precautions without reinforcements by 04/30/15 4. Pt will be free of infection by 04/30/15 5. Pt will be able to transfer, walk, and do a stair following precautions with a walker by 04/30/15 STRATEGY TO ACHIEVE GOALS: Instruct patient in the use of Incentive Spirometry and/or deep breath and cough. Nursing a nd Respiratory to work together to have patient use every hour while awake. Respiratory to m onitor progress 4 times daily until 75% goal met then turn over to nursing. 2.Medicate pt using the standard pain scale 0-10 to keep pain down to tolerable 2/10 pain. Teach pt when to call for pain med to keep pain at a tolerable place. Medicate toward the go al of tolerating pain on po pain meds. 3. Teach and reinforce hip precautions. Make sure abductor pillow is on in bed. Assess inci jordi and drsg To keep wound clean dry and intact. Advance diet as pt tolerates and encourage to eat to assist in wound healing. 4. PT and OT And nurse, SALES PROJECT ENGINEER work with pt to increase mobility with safety and following hip precautions. RESTRAINT-RELATED GOALS: STRATEGIES TO ACHIEVE RESTRAINT GOALS: Outcome: Improving Physical Therapy Daily Treatment Note Patient Information Patient Name: Zeenat Harmon Date of : 1945 Age: 69 y.o. Precautions/Limitations: falls Left Upper Extremity Weight-Bearing: weight-bearing as tolerated Right Upper Extremity Weight-Bearing: full weight-bearing Left Lower Extremity Weight-Bearing: full weight-bearing Right Lower Extremity Weight-Bearing: full weight-bearing Start Time: 0900 Stop time: 0930 Time Calculation: 30 minutes Missed Treatment Time: minutes Total Treatment Time: 30 minutes TimedTreatment Code Minutes: 30 minutes Subjective: Pt presents in bed, agreeable to tx, requesting to put her own clothes on Objective: Treatment Provided: Bed mob, gait and transfers as noted below. Pt set her own distances an d returned to room when fatigued. Good safety, PT recommending use of grippy socks or shoes for gait for sfaety, not tedhose. Education: HEP Patient Status/Goals: Reflects last filed data of patient status; may be from multiple contributors. Gait fww Level of [place] : supervision required Assistive Device: 2 wheeled walker (FWW) Distance (feet): 100 Gait Pattern Analysis: 2-point gait Gait Deviations: stride length decreased, weight-shifting ability decreased, jaen decrea sed, step length decreased Transfers CGA only because of gait belt use due to safety concern from last tx with BP low, no sympto ms of low BP today though and no addl asssist required. Bed-Chair, Level of [place]: supervision required, verbal cues required Chair-Bed, Level of [place]: supervision required [id number], Assistive Device: 2 wheeled walker (FWW) Sit-Stand, Level of [place]: supervision required Stand-Sit, Level of [place]: supervision required [id number], Assistive Device: 2 wheeled walker (FWW) Toilet, Level of [place]: supervision required Toilet, Assistive Device: 2 wheeled walker (FWW) Maintain Weight Bearing Status: able to maintain weight bearing status Safety Issues: balance decreased during turns Impairments: impaired balance, strength decreased Bed Mobility supervsied with cues to use arms and strong leg to move effected leg. Assistive Device: bed rails Roll Left, Level of [place]: supervision required, verbal cues required Supine to Sit, Level of [place]: supervision required, verbal cues required Sit to Supine, Level of [place]: supervision required, verbal cues required Sidelying to Sit, Level of [place]: supervision required Sit to Sidelying, Level of [place]: supervision required Safety Issues: decreased use of legs for bridging/pushing Impairments: ROM decreased, pain, strength decreased Balance good Functional Endurance fair+ ROM LLE limited by hip prec and pain Strength LLE limited by hip prec and pain STG GOALS Bed Mobility Goal, Activity Type: supine to sit/sit to supine [place] Level: modified independence Assistive Device: bed rails Time to Achieve: 2 - 3 days Goal Status: continued Transfer Training Goal, Activity Type: bed to chair /chair to bed [place] Level: modified independence Assistive Device: 2 wheeled walker (FWW) Time to Achieve: 2 - 3 days Goal Status: continued Gait Training Goal, [place] Level: modified independence Assistive Device: 2 wheeled walker (FWW) Time to Achieve: 2 - 3 days Goal Status: continued Stairs Goal, [place] Level: modified independence Number of Stairs: 4 Time to Achieve: 2 - 3 days Goal Status: continued Assessment: Pt will cont to benefit from PT to increase fucntional moblity and begin stair training for home DC Physical Therapy Anticipated Discharge Needs are: Have the anticipated discharge needs changed? yes - Pt wants to DC home. Post discharge physical therapy recommendation: [facility] Plan for next treatment: 1P, JPM, FWW, progressive gait and mobility, Electronically signed by: Lauro Webster, PT, 04/29/2015 17:34 lan of Care - Christiana Encinas RN - 04/29/2015 5:29 PM PSTProblem: Patient Care Overview (Adult) Goal: Care Team Goals & Evaluation PROBLEM-RELATED GOALS: 1.Will meet 75% of predicted goal of 2400 by 04/30/15. 2.Pt will have manageable pain with po medication without nausea by 04/30/15 3.Pt will understand and follow hip precautions without reinforcements by 04/30/15 4. Pt will be free of infection by 04/30/15 5. Pt will be able to transfer, walk, and do a stair following precautions with a walker by 04/30/15 STRATEGY TO ACHIEVE GOALS: Instruct patient in the use of Incentive Spirometry and/or deep breath and cough. Nursing a nd Respiratory to work together to have patient use every hour while awake. Respiratory to m onitor progress 4 times daily until 75% goal met then turn over to nursing. 2.Medicate pt using the standard pain scale 0-10 to keep pain down to tolerable 2/10 pain. Teach pt when to call for pain med to keep pain at a tolerable place. Medicate toward the go al of tolerating pain on po pain meds. 3. Teach and reinforce hip precautions. Make sure abductor pillow is on in bed. Assess inci jordi and drsg To keep wound clean dry and intact. Advance diet as pt tolerates and encourage to eat to assist in wound healing. 4. PT and OT And nurse, SALES PROJECT ENGINEER work with pt to increase mobility with safety and following hip precautions. RESTRAINT-RELATED GOALS: STRATEGIES TO ACHIEVE RESTRAINT GOALS: Outcome: Improving Goal Evaluation. Patients post op pain is controlled with 650 mg tylenol po, no nausea, tolerating regular d iet well. Up amb modified independent with fww, stable gait, using stairs with PT, follows hip precau tions well. lan of Bernadette Rice OT - 04/29/2015 12:07 PM PSTProblem: Patient Care Overview (Adult) Goal: Care Team Goals & Evaluation PROBLEM-RELATED GOALS: 1.Will meet 75% of predicted goal of 2400 by 04/30/15. 2.Pt will have manageable pain with po medication without nausea by 04/30/15 3.Pt will understand and follow hip precautions without reinforcements by 04/30/15 4. Pt will be free of infection by 04/30/15 5. Pt will be able to transfer, walk, and do a stair following precautions with a walker by 04/30/15 STRATEGY TO ACHIEVE GOALS: Instruct patient in the use of Incentive Spirometry and/or deep breath and cough. Nursing a nd Respiratory to work together to have patient use every hour while awake. Respiratory to m onitor progress 4 times daily until 75% goal met then turn over to nursing. 2.Medicate pt using the standard pain scale 0-10 to keep pain down to tolerable 2/10 pain. Teach pt when to call for pain med to keep pain at a tolerable place. Medicate toward the go al of tolerating pain on po pain meds. 3. Teach and reinforce hip precautions. Make sure abductor pillow is on in bed. Assess inci jordi and drsg To keep wound clean dry and intact. Advance diet as pt tolerates and encourage to eat to assist in wound healing. 4. PT and OT And nurse, SALES PROJECT ENGINEER work with pt to increase mobility with safety and following hip precautions. RESTRAINT-RELATED GOALS: STRATEGIES TO ACHIEVE RESTRAINT GOALS: Outcome: Goal Achieved Date Met: 04/29/15 Occupational Therapy Daily Treatment Note Patient Information Patient Name: Zeenat Harmon Date of : 1945 Age: 69 y.o. Precautions/Limitations: falls Left Upper Extremity Weight-Bearing: weight-bearing as tolerated Right Upper Extremity Weight-Bearing: full weight-bearing Left Lower Extremity Weight-Bearing: full weight-bearing Right Lower Extremity Weight-Bearing: full weight-bearing Start Time: 1135 Stop time: 1150 Time Calculation: 15 minutes Missed Treatment Time: minutes Total Treatment Time: 15 minutes TimedTreatment Code Minutes: 15 minutes Subjective: "I'm going home tomorrow!" Pt lightly napping but agreed to get up to bathroom & LB dressing. Objective: Pt seen for ADLs & functional mobility. Good recall of precautions. Please see below for addt'l info on status & outcome. No further acute OT. Education: Maintenance of 90* hip precautions; safety; potential AE/DME needs Treatment Provided: ADL training; functional mobility; safety Patient Status/Goals Reflects last filed data of patient status; may be from multiple contributors. ADLs LB, Level of [place]: modified independence (Would benefit from use of junior accountant bookkeeper, but ca n complete LB w/ w/o. will assist as well as necessary. ) Assistive Device: junior accountant bookkeeper LB Dressing Assess/Train, Position: sitting LB Dressing Assess/Train, Impairments: ROM decreased (Posterior hip precautions) Toileting, Level of [place]: modified independence Assistive Device: grab bar Toileting Assess/Train, Position: sitting Toileting Assess/Train, Impairments: ROM decreased (Posterior hip precautions) Transfers Toilet, Level of [place]: modified independence Toilet, Assistive Device: 2 wheeled walker (FWW), grab bars Maintain Weight Bearing Status: able to maintain weight bearing status Safety Issues: (Has grab bar & sink @ home for stability next to toilet) Impairments: (Posterior hip precautions) STG Goals Transfer Training Goal, Activity Type: (Toilet, shower transfer mod I. ) [place] Level: modified independence Assistive Device: 2 wheeled walker (FWW), grab bars Time to Achieve: by discharge Goal Status: new Toileting Goal, [place] Level: modified independence Time to Achieve: by discharge Goal Status: met LB Dressing Goal, [place] Level: modified independence Adaptive Equipment: junior accountant bookkeeper, sock-aid Time to Achieve: by discharge Goal Status: met Assessment: Doing very well post-operatively. Mod I in room w/ FWW. ABle to complete ADLs . Aware of potential need for AE for LB dressing. Otherwise, has appropriate equipment @ h ome. Acute OT goals met. D/c from acute OT. Occupational Therapy Anticipated Discharge Needs are: (To be determined) Have the anticipated discharge needs changed? no Post discharge occupational therapy recommendation: No further OT. Plan for next treatment: No further OT Electronically signed by: Bernadette Guillory OT, 04/29/2015 12:04 lan of Care - Raghav Napoles RN - 04/29/2015 3:56 AM PSTProblem: Patient Care Overview (Adult) Goal: Care Team Goals & Evaluation PROBLEM-RELATED GOALS: 1.Will meet 75% of predicted goal of 2400 by 04/30/15. 2.Pt will have manageable pain with po medication without nausea by 04/30/15 3.Pt will understand and follow hip precautions without reinforcements by 04/30/15 4. Pt will be free of infection by 04/30/15 5. Pt will be able to transfer, walk, and do a stair following precautions with a walker by 04/30/15 STRATEGY TO ACHIEVE GOALS: Instruct patient in the use of Incentive Spirometry and/or deep breath and cough. Nursing a nd Respiratory to work together to have patient use every hour while awake. Respiratory to m onitor progress 4 times daily until 75% goal met then turn over to nursing. 2.Medicate pt using the standard pain scale 0-10 to keep pain down to tolerable 2/10 pain. Teach pt when to call for pain med to keep pain at a tolerable place. Medicate toward the go al of tolerating pain on po pain meds. 3. Teach and reinforce hip precautions. Make sure abductor pillow is on in bed. Assess inci jordi and drsg To keep wound clean dry and intact. Advance diet as pt tolerates and encourage to eat to assist in wound healing. 4. PT and OT And nurse, SALES PROJECT ENGINEER work with pt to increase mobility with safety and following hip precautions. RESTRAINT-RELATED GOALS: STRATEGIES TO ACHIEVE RESTRAINT GOALS: Goal Evaluation: Incisional pain well controlled/no need to be medicating during the night. Sleeping on and off. No SOB. Using IS with encouragement. Voiding well via BSC and 1 person SBA. Strength 5 /5 x4 extremities. CMS intact. Incisional dressing CDI. Following precautions well. Abductor pillow in place. No s/s of infection. SCD's on. No other changes to assessment. lan of Care - Christiana Aguilera RN - 04/28/2015 5:10 PM PSTProblem: Patient Care Overview (Adult) Goal: Care Team Goals & Evaluation PROBLEM-RELATED GOALS: 1.Will meet 75% of predicted goal of 2400 by 04/30/15. 2.Pt will have manageable pain with po medication without nausea by 04/30/15 3.Pt will understand and follow hip precautions without reinforcements by 04/30/15 4. Pt will be free of infection by 04/30/15 5. Pt will be able to transfer, walk, and do a stair following precautions with a walker by 04/30/15 STRATEGY TO ACHIEVE GOALS: Instruct patient in the use of Incentive Spirometry and/or deep breath and cough. Nursing a nd Respiratory to work together to have patient use every hour while awake. Respiratory to m onitor progress 4 times daily until 75% goal met then turn over to nursing. 2.Medicate pt using the standard pain scale 0-10 to keep pain down to tolerable 2/10 pain. Teach pt when to call for pain med to keep pain at a tolerable place. Medicate toward the go al of tolerating pain on po pain meds. 3. Teach and reinforce hip precautions. Make sure abductor pillow is on in bed. Assess inci jordi and drsg To keep wound clean dry and intact. Advance diet as pt tolerates and encourage to eat to assist in wound healing. 4. PT and OT And nurse, SALES PROJECT ENGINEER work with pt to increase mobility with safety and following hip precautions. RESTRAINT-RELATED GOALS: STRATEGIES TO ACHIEVE RESTRAINT GOALS: Outcome: Improving Goal Evaluation: OBLEM-RELATED GOALS: Pain controlled with oral pain meds, nausea has passed and eating regular diet well Follows hip precautions with 1-2 person assist for mobility, up in chair and amb in room wi th fww. Weaned to room air, lungs clear lan of Pj Bang OT - 04/28/2015 5:09 PM PSTFormatting of this note might be different f rom the original. Occupational Therapy Acute Initial Evaluation Note Patient Information Patient Name: Zeenat Harmon Date of : 1945 Age: 69 y.o. History Encounter Diagnoses Code Name Primary? Z96.642 Status post total replacement of left hip Yes Date of Onset: 04/27/15 Past Medical History Diagnosis Date Hypertension Osteoarthritis Hypothyroidism PONV (postoperative nausea and vomiting) Wears dentures partial upper & lower Past Surgical History Procedure Laterality Date Total knee arthroplasty Bilateral 1996 & 2000 Carpal tunnel release Left Hysterectomy Total hip arthroplasty Left 04/27/2015 Procedure: Left Total Hip Arthroplasty; Surgeon: Jeff Yeh MD; Location: [facility] MA[facility] OR No Known Allergies Precautions/Limitations: falls Left Upper Extremity Weight-Bearing: weight-bearing as tolerated Right Upper Extremity Weight-Bearing: full weight-bearing Left Lower Extremity Weight-Bearing: full weight-bearing Right Lower Extremity Weight-Bearing: full weight-bearing Evaluation SUBJECTIVE: History of Presenting Problem: Zeenat Harmon is a 69 y.o. who presents to therapy for Progressive deterioration of L hip per pt, now S/P elective R AMAURY Patient is right handed. OT Diagnosis: weakness s/p surgery Previous Level of Function: Ambulation: 1-->assistive equipment Transferrin-->assistive equipment Toiletin-->assistive equipment Bathin-->independent Dressin-->assistive person Eatin-->independent Communication: 0-->understands/communicates without difficulty Swallowin-->swallows foods/liquids without difficulty Prior Functional Level Comment: SPC use with gait prior due to pain per pt. Role/Relationships: Living Environment/Accessibility: Lives With: spouse Living Arrangements: house Number of Stairs to Enter Home: 1 Financial Concerns: none Transportation Available: car Patient s Goals: pt desires to d/c home with for assist OT Visit Summary: Pt seen for eval and treat. Due to pt fatigue and orthostatic concerns from this morning, louis De La Cruz assisted with eval. Pt BP at 119/58 in supine, 129/56 seated. Pt transferred from supine to seated EOB, then from sit>stand. Pt at min A for transfers. Upon standing, pt reported incontinence of bladder. Pt sat back on EOB, bedside commode ac quired, pt performed step pivot transfer onto commode, voided bladder. Bed pad changed. Pt performed salbador care independently. Pt then returned to EOB, then to supine in bed, all at min A with 2 person assist. Pt MICHAELLE hose soiled with bladder voiding while standing, so new hose applied. Occupational Therapy will follow Zeenat Harmon 3 times/wk until discharge from therap or discharged from the hospital. Occupational Therapy Anticipated Discharge Needs are: (To be determined) Post discharge occupational therapy recommendation: (To be determind) Equipment Recommendations: junior accountant bookkeeper, sock aide Identified Problems Needing Skilled Intervention: weakness s/p surgery, aerobic capacity/ endurance, gait, locomotion, and balance Planned Interventions:Planned Therapy Interventions: ADL retraining, strengthening, transfe r training Patient Status/Goals Reflects last filed data of patient status; may be from multiple contributors. FIM: ADLs Toileting, Level of [place]: minimum assist (75% patient effort), set up required Assistive Device: bedside commode Toileting Assess/Train, Position: sitting Toileting Assess/Train, Impairments: pain, strength decreased, sensation decreased IADLs Therapeutic Exercise Functional Endurance Cognitive Cognitive Tests Bed Mobility Assistive Device: bed rails Roll Left, Level of [place]: verbal cues required, minimum assist (75% patient effort) Safety Issues: decreased use of legs for bridging/pushing Impairments: ROM decreased, pain, strength decreased Transfers Sit-Stand, Level of [place]: minimum assist (75% patient effort), 2 person assist requ ired Stand-Sit, Level of [place]: minimum assist (75% patient effort), 2 person assist requ ired [id number], Assistive Device: 2 wheeled walker (FWW) Toilet, Level of [place]: minimum assist (75% patient effort), 2 person assist require d Toilet, Assistive Device: 2 wheeled walker (FWW), commode (drop arm) Safety Issues: balance decreased during turns, step length decreased Impairments: ROM decreased, pain, strength decreased Wheelchair Mobility Balance ROM Strength STG Goals Transfer Training Goal, Activity Type: shower chair, toilet, bed to chair /chair to bed [place] Level: modified independence Assistive Device: 2 wheeled walker (FWW) Time to Achieve: by discharge Goal Status: new Toileting Goal, [place] Level: modified independence Time to Achieve: by discharge Goal Status: new LB Dressing Goal, [place] Level: modified independence Adaptive Equipment: junior accountant bookkeeper, sock-aid Time to Achieve: by discharge Goal Status: new LTG Goals Demonstrates need for referral to other service: Assessment: Occupational therapy orders received and acknowledged. Objective impairments i nclude weakness, pain. These impairments are causing functional limitations with patient s inability to perform functional transfers and ADLs. Complexities contributing to the need f or skilled therapy include pain, recent surgery. Prognosis: good, to achieve stated therapy goals Patient and/or family has indicated understanding of treatment needs and actively participa michaelle in the creation of this plan for care. Today's Treatment Start Time: 1415 Stop time: 1500 Time Calculation: 45 minutes Missed Treatment Time: minutes Total Treatment Time: 45 minutes TimedTreatment Code Minutes: 30 minutes Objective: Education: OT POC and safety during transfers, toileting Treatment Provided: eval and ADL transfer training and toileting Assessment: Pt tolerated tx well, with incomplete control of bladder. Plan for next treatment: 2P. DB. OT for ADLs and transfer training Electronically signed by: Pj Henry OT, 04/28/2015 17:09 lan of Care - Lauro Murphy, PT - 04/28/2015 4:45 PM PSTProblem: Patient Care Overview (Adult) Goal: Care Team Goals & Evaluation PROBLEM-RELATED GOALS: 1.Will meet 75% of predicted goal of 2400 by 04/30/15. 2.Pt will have manageable pain with po medication without nausea by 04/30/15 3.Pt will understand and follow hip precautions without reinforcements by 04/30/15 4. Pt will be free of infection by 04/30/15 5. Pt will be able to transfer, walk, and do a stair following precautions with a walker by 04/30/15 STRATEGY TO ACHIEVE GOALS: Instruct patient in the use of Incentive Spirometry and/or deep breath and cough. Nursing a nd Respiratory to work together to have patient use every hour while awake. Respiratory to m onitor progress 4 times daily until 75% goal met then turn over to nursing. 2.Medicate pt using the standard pain scale 0-10 to keep pain down to tolerable 2/10 pain. Teach pt when to call for pain med to keep pain at a tolerable place. Medicate toward the go al of tolerating pain on po pain meds. 3. Teach and reinforce hip precautions. Make sure abductor pillow is on in bed. Assess inci jordi and drsg To keep wound clean dry and intact. Advance diet as pt tolerates and encourage to eat to assist in wound healing. 4. PT and OT And nurse, SALES PROJECT ENGINEER work with pt to increase mobility with safety and following hip precautions. RESTRAINT-RELATED GOALS: STRATEGIES TO ACHIEVE RESTRAINT GOALS: Outcome: Improving Physical Therapy Daily Treatment Note Patient Information Patient Name: Zeenat Harmon Date of : 1945 Age: 69 y.o. Precautions/Limitations: falls Left Upper Extremity Weight-Bearing: weight-bearing as tolerated Right Upper Extremity Weight-Bearing: full weight-bearing Left Lower Extremity Weight-Bearing: full weight-bearing Right Lower Extremity Weight-Bearing: full weight-bearing Start Time: 1515 Stop time: 1545 Time Calculation: 30 minutes Missed Treatment Time: minutes Total Treatment Time: 30 minutes TimedTreatment Code Minutes: 30 minutes Subjective: Pt presnets in bed, reporting doing much better than this AM. Objective: Treatment Provided: Bed mob and tranfsers as noted below. Pt left sitting up after in room gait and transfer practice with min A with fww, handed off to nursing. Education: call for assist for transfers for safety. Patient Status/Goals: Reflects last filed data of patient status; may be from multiple contributors. Gait FWW for safety Level of [place]ber[place] : minimum assist (75% patient effort), 2 person assist required Assistive Device: 2 wheeled walker (FWW) Distance (feet): 8 Gait Pattern Analysis: 3-point gait Gait Deviations: jane decreased, double stance time increased, [id number] clearance de creased, limb motion velocity decreased, step length decreased, stride length decreased, str prem width increased, [id number] ratio decreased, weight-shifting ability decreased Transfers Min A for safety and stability, extra person for safety with fww use and gait belt. Bed-Chair, Level of [place]: minimum assist (75% patient effort) Chair-Bed, Level of [place]: 2 person assist required, minimum assist (75% patient eff ort) [id number], Assistive Device: 2 wheeled walker (FWW) Sit-Stand, Level of [place]: minimum assist (75% patient effort) Stand-Sit, Level of [place]: minimum assist (75% patient effort) [id number], Assistive Device: 2 wheeled walker (FWW) Maintain Weight Bearing Status: assist to maintain weight bearing status Safety Issues: balance decreased during turns, weight-shifting ability decreased, step jony th decreased Impairments: strength decreased, sensation decreased, impaired balance Bed Mobility Min A for LLE Assistive Device: bed rails Roll Left, Level of [place]: minimum assist (75% patient effort) Supine to Sit, Level of [place]: minimum assist (75% patient effort) Sit to Supine, Level of [place]: minimum assist (75% patient effort) Sidelying to Sit, Level of [place]: minimum assist (75% patient effort) Sit to Sidelying, Level of [place]: minimum assist (75% patient effort) Safety Issues: decreased use of legs for bridging/pushing Impairments: decreased flexibility, sensation decreased, strength decreased, impaired jim ce, unable to maintain weight bearing status Balance fair Functional Endurance fair ROM LLE limited by hip prec and pain Strength LLE limited by hip prec and pain STG GOALS Bed Mobility Goal, Activity Type: supine to sit/sit to supine [place] Level: modified independence Assistive Device: bed rails Time to Achieve: 2 - 3 days Goal Status: continued Transfer Training Goal, Activity Type: bed to chair /chair to bed [place] Level: modified independence Assistive Device: 2 wheeled walker (FWW) Time to Achieve: 2 - 3 days Goal Status: continued Gait Training Goal, [place] Level: modified independence Assistive Device: 2 wheeled walker (FWW) Time to Achieve: 2 - 3 days Goal Status: continued Stairs Goal, [place] Level: modified independence Number of Stairs: 4 Time to Achieve: 2 - 3 days Goal Status: continued Assessment: Pt doing much better, no symptoms of OH this tx. Pt able to bear full wt on LLE and using FWW appropriately. Will benefit from cont PT to increase functional mobility and safety with gait for safe DC. Physical Therapy Anticipated Discharge Needs are: ongoing PT Have the anticipated discharge needs changed? no Post discharge physical therapy recommendation: DISTRICT CAPTAIN Plan for next treatment: 2P, JPM, FWW, progressive gait and functional mobility training. Electronically signed by: Lauro Webster PT, 04/28/2015 16:43 lan of Care - Lauro Webster PT - 04/28/2015 4:37 PM PSTFormatting of this note might be differen t from the original. Problem: Patient Care Overview (Adult) Goal: Care Team Goals & Evaluation PROBLEM-RELATED GOALS: 1.Will meet 75% of predicted goal of 2400 by 04/30/15. 2.Pt will have manageable pain with po medication without nausea by 04/30/15 3.Pt will understand and follow hip precautions without reinforcements by 04/30/15 4. Pt will be free of infection by 04/30/15 5. Pt will be able to transfer, walk, and do a stair following precautions with a walker by 04/30/15 STRATEGY TO ACHIEVE GOALS: Instruct patient in the use of Incentive Spirometry and/or deep breath and cough. Nursing a nd Respiratory to work together to have patient use every hour while awake. Respiratory to m onitor progress 4 times daily until 75% goal met then turn over to nursing. 2.Medicate pt using the standard pain scale 0-10 to keep pain down to tolerable 2/10 pain. Teach pt when to call for pain med to keep pain at a tolerable place. Medicate toward the go al of tolerating pain on po pain meds. 3. Teach and reinforce hip precautions. Make sure abductor pillow is on in bed. Assess inci jordi and drsg To keep wound clean dry and intact. Advance diet as pt tolerates and encourage to eat to assist in wound healing. 4. PT and OT And nurse, SALES PROJECT ENGINEER work with pt to increase mobility with safety and following hip precautions. RESTRAINT-RELATED GOALS: STRATEGIES TO ACHIEVE RESTRAINT GOALS: Outcome: Improving Physical Therapy Acute Initial Evaluation Note Patient Information Patient Name: Zeenat Harmon Date of : 1945 Age: 69 y.o. History Encounter Diagnoses Code Name Primary? Z96.642 Status post total replacement of left hip Yes Date of Onset: 04/27/15 Past Medical History Diagnosis Date Hypertension Osteoarthritis Hypothyroidism PONV (postoperative nausea and vomiting) Wears dentures partial upper & lower Past Surgical History Procedure Laterality Date Total knee arthroplasty Bilateral 1996 & 2000 Carpal tunnel release Left Hysterectomy Total hip arthroplasty Left 04/27/2015 Procedure: Left Total Hip Arthroplasty; Surgeon: Jeff Yeh MD; Location: [facility] OR No Known Allergies Precautions/Limitations: falls Left Upper Extremity Weight-Bearing: weight-bearing as tolerated Right Upper Extremity Weight-Bearing: full weight-bearing Left Lower Extremity Weight-Bearing: full weight-bearing Right Lower Extremity Weight-Bearing: full weight-bearing EVALUATION: SUBJECTIVE: History of Presenting Problem: Zeenat Harmon is a 69 y.o. who presents to therapy for Progressive deterioration of L hip per pt, now S/P elective R AMAURY PT Diagnosis: L AMAURY Impairments Found: aerobic capacity/endurance, gait, locomotion, and balance Previous Level of Function: Ambulation: 1-->assistive equipment Transferrin-->assistive equipment Toiletin-->assistive equipment Bathin-->independent Dressin-->assistive person Eatin-->independent Communication: 0-->understands/communicates without difficulty Swallowin-->swallows foods/liquids without difficulty Prior Functional Level Comment: SPC use with gait prior due to pain per pt. Living Environment/Accessibility: Lives With: spouse Living Arrangements: house Number of Stairs to Enter Home: 1 Financial Concerns: none Transportation Available: car Patient s Goals: Return to PLOF as soon as posslible OBJECTIVE : Patient Status/Goals: Reflects last filed data of patient status; may be from multiple contributors. Gait Pt too dizzy and symptomatic for OH to attempt gait at this time. Level of [place] : unable to perform, not appropriate to assess, 2 person assist requi red Assistive Device: 2 wheeled walker (FWW) Distance (feet): 0 Transfers supine to sit with mod A for LLE, sitting EOB pt became very dizzy and required immediate 2 person max A as pt appeared to be passing out, loss of bladder as pt was returned to supine . pt immediately talking to PT, reporting "I thought I was really smart didn't I".... Ki watts advised. Bed Mobility min to mod A for LLE Assistive Device: bed rails Roll Left, Level of [place]: moderate assist (50% patient effort) Supine to Sit, Level of [place]: minimum assist (75% patient effort) Sit to Supine, Level of [place]: moderate assist (50% patient effort) Sidelying to Sit, Level of [place]: minimum assist (75% patient effort) Sit to Sidelying, Level of [place]: minimum assist (75% patient effort) Safety Issues: decreased use of legs for bridging/pushing Impairments: decreased flexibility, sensation decreased, strength decreased, impaired jim ce, unable to maintain weight bearing status Balance fair- Functional Endurance fair-, feeling woosy and dizzy with sitting up, symptomatic with low BP with sitting up ROM LLE limited by hip prec and pain Strength LLE limited by hip prec and pain STG GOALS Bed Mobility Goal, Activity Type: supine to sit/sit to supine [place] Level: modified independence Assistive Device: bed rails Time to Achieve: 2 - 3 days Goal Status: new Transfer Training Goal, Activity Type: bed to chair /chair to bed [place] Level: modified independence Assistive Device: 2 wheeled walker (FWW) Time to Achieve: 2 - 3 days Goal Status: new Gait Training Goal, [place] Level: modified independence Assistive Device: 2 wheeled walker (FWW) Time to Achieve: 2 - 3 days Goal Status: new Stairs Goal, [place] Level: modified independence Number of Stairs: 4 Time to Achieve: 2 - 3 days Goal Status: new Demonstrates need for referral to other service: OT Assessment: Physical therapy orders received and acknowledged. Objective impairments inclu de L hip pain, decreased balance. These impairments are causing functional limitations with patient s inability to self mobilize. Complexities contributing to the need for skilled th erapy include previously active,. Rehabilitation potential: Patient demonstrates good potential to achieve established goals and good potential to achieve prior status to address the documented impairments by partici pating in skilled physical therapy services. PLAN: balance training, bed mobility training, gait training, wheelchair management/propulsion tr aining, transfer training, stair training, strengthening, patient/family education Physical Therapy will follow Zeenat Harmon 2 times/day until discharge from therapy o r discharged from the hospital. Anticipated days that therapy will be provided: 04-30-15 Physical Therapy Anticipated Discharge Needs are: Post discharge physical therapy recommendation: pt is motivated participant, will benefit from structured setting, ongoing low intensity therapy Equipment Recommendations: 2 wheeled walker (FWW) Patient and/or family has indicated understanding of treatment needs and actively participa michaelle in the creation of this plan for care. Today's Treatment Start Time: 1045 Stop time: 1130 Time Calculation: 45 minutes Missed Treatment Time: minutes Total Treatment Time: 45 minutes TimedTreatment Code Minutes: 30 minutes Objective: Treatment Provided: Pt presents in bed, agreeable to tx. See notes above. Pt handed off to nursing. Education: call for assist for tranfsers and edu for OH. Assessment: Pt very dizzy with sitting up EOB and symptomatic for OH with pt nearly passing out at EOB. In supine pt conversing with PT and BP returning back up from approx 86/46 HR 5 6. Nursing aware. Pt will benefit from PT BID as robert to increase functional moblity and stre ngthening and safety. Plan for next treatment: 2P, JPM, FWW, progressive gait and functional mobility training. Electronically signed by: Lauro Webster PT, 04/28/2015 16:32 lan of Care - Tara Davila Chaplain - 04/28/2015 12:10 PM PSTProblem: Spiritual Distress, Risk/Actu al (Adult,Obstetrics,Pediatric) Goal: Spiritual Well-being Patient will demonstrate the desired outcomes by discharge/transition of care. Spiritual Care Zeenat Harmon is a 69 y.o. female who is admitted for Primary osteoarthritis of left hip [M16.12]. Spiritual Evaluation: This was a follow up visit after I saw the patient yesterday for pra marko before hip surgery. Pat was sitting up in bed working on her meal menu. She was bright and cheerful and welcomed a compensation intern visit. Pat said that she is very happy with her surge ry and recovery so far and is appreciative of the care she is receiving [facility]. She spoke of how much she loves the home where she has lived for 45 years and where s he raised her three children. Two daughters live in the area. A son is in [place], [place]. She is looking forward to going home. Pat requested prayers of thanksgiving for a successf ul surgery, for wonderful care and for her home and family. Spiritual Intervention: Offered pastoral listening and witness to Desi's story. Shared pra marko. Spiritual Outcomes: Pat expressed her appreciation for the visit and prayer. Spiritual Goals/Follow-up: Follow up if requested. lan of Stephenie Worrell - 04/28/2015 11:42 AM PSTDischarge Planning: Met with patient regarding discharge planning: Patient lives with her spouse in [place]. Her PCP: Dr. Yoder. There is one step at the ent crys of her home and no steps within. She has a shower seat and walk in shower. She will ne ed a FWW and doesn't have a DME preference. This CM will use [facility]. Faxed orders to [facility]. R eceived the Communication Result Report; Result ok. Patient didn't attend joint class. Vishal lanza gets her medication through [facility]. Patient's spouse will transport her home at discharge. Home health was declined. Electronically signed by: Stephenie Byrd 04/28/2015 12:00 lan of Care - Linwood Villalobos RN - 04/28/2015 6:33 AM PSTProblem: Patient Care Overview (Adult) Goal: Care Team Goals & Evaluation PROBLEM-RELATED GOALS: 1.Will meet 75% of predicted goal of 2400 by 04/30/15. 2.Pt will have manageable pain with po medication without nausea by 04/30/15 3.Pt will understand and follow hip precautions without reinforcements by 04/30/15 4. Pt will be free of infection by 04/30/15 5. Pt will be able to transfer, walk, and do a stair following precautions with a walker by 04/30/15 STRATEGY TO ACHIEVE GOALS: Instruct patient in the use of Incentive Spirometry and/or deep breath and cough. Nursing a nd Respiratory to work together to have patient use every hour while awake. Respiratory to m onitor progress 4 times daily until 75% goal met then turn over to nursing. 2.Medicate pt using the standard pain scale 0-10 to keep pain down to tolerable 2/10 pain. Teach pt when to call for pain med to keep pain at a tolerable place. Medicate toward the go al of tolerating pain on po pain meds. 3. Teach and reinforce hip precautions. Make sure abductor pillow is on in bed. Assess inci jordi and drsg To keep wound clean dry and intact. Advance diet as pt tolerates and encourage to eat to assist in wound healing. 4. PT and OT And nurse, SALES PROJECT ENGINEER work with pt to increase mobility with safety and following hip precautions. RESTRAINT-RELATED GOALS: STRATEGIES TO ACHIEVE RESTRAINT GOALS: Outcome: Improving Goal Evaluation: Incisional pain well controled/no need to be medicating during the night. Sleeping on and off. No SOB. Voiding well via bedpan. Slight numbness to LLE but improving. Incisional dres sing CDI. Following precautions well. abductor pillow in place. Tolerating diet well. SCD's on. No other changes to assessment. lan of Care - Sara Watson, RESOURCE AGENT - 04/28/2015 5:35 AM PSTProblem: Patient Care Overview (Adult) Goal: Care Team Goals & Evaluation PROBLEM-RELATED GOALS: 1.Will meet 75% of predicted goal of 2400 by 04/30/15. 2.Pt will have manageable pain with po medication without nausea by 04/30/15 3.Pt will understand and follow hip precautions without reinforcements by 04/30/15 4. Pt will be free of infection by 04/30/15 5. Pt will be able to transfer, walk, and do a stair following precautions with a walker by 04/30/15 STRATEGY TO ACHIEVE GOALS: Instruct patient in the use of Incentive Spirometry and/or deep breath and cough. Nursing a nd Respiratory to work together to have patient use every hour while awake. Respiratory to m onitor progress 4 times daily until 75% goal met then turn over to nursing. 2.Medicate pt using the standard pain scale 0-10 to keep pain down to tolerable 2/10 pain. Teach pt when to call for pain med to keep pain at a tolerable place. Medicate toward the go al of tolerating pain on po pain meds. 3. Teach and reinforce hip precautions. Make sure abductor pillow is on in bed. Assess inci jordi and drsg To keep wound clean dry and intact. Advance diet as pt tolerates and encourage to eat to assist in wound healing. 4. PT and OT And nurse, SALES PROJECT ENGINEER work with pt to increase mobility with safety and following hip precautions. RESTRAINT-RELATED GOALS: STRATEGIES TO ACHIEVE RESTRAINT GOALS: Outcome: Improving Goal Evaluation:able to Wean O2 to room air, will continue to work with patient on using I S/DB&C lan of Care - Augusta Crabtree RN - 04/27/2015 8:22 PM PSTProblem: Patient Care Overview (Adult) Goal: Care Team Goals & Evaluation PROBLEM-RELATED GOALS: 1.Will meet 75% of predicted goal of 2400 by 04/30/15. 2.Pt will have manageable pain with po medication without nausea by 04/30/15 3.Pt will understand and follow hip precautions without reinforcements by 04/30/15 4. Pt will be free of infection by 04/30/15 5. Pt will be able to transfer, walk, and do a stair following precautions with a walker by 04/30/15 STRATEGY TO ACHIEVE GOALS: Instruct patient in the use of Incentive Spirometry and/or deep breath and cough. Nursing a nd Respiratory to work together to have patient use every hour while awake. Respiratory to m onitor progress 4 times daily until 75% goal met then turn over to nursing. 2.Medicate pt using the standard pain scale 0-10 to keep pain down to tolerable 2/10 pain. Teach pt when to call for pain med to keep pain at a tolerable place. Medicate toward the go al of tolerating pain on po pain meds. 3. Teach and reinforce hip precautions. Make sure abductor pillow is on in bed. Assess inci jordi and drsg To keep wound clean dry and intact. Advance diet as pt tolerates and encourage to eat to assist in wound healing. 4. PT and OT And nurse, SALES PROJECT ENGINEER work with pt to increase mobility with safety and following hip precautions. RESTRAINT-RELATED GOALS: STRATEGIES TO ACHIEVE RESTRAINT GOALS: Outcome: Improving Goal Evaluation: Pt returned from surgery with no pain. Taught pt to call when pain slight ly increasing to keep at a tolerable level. Medicated with IV morphine with good relief whi le pt on clear liquids without nausea. Pt able to eat crackers and jello, medicated with ty lenol and metoprolol. Left hip drsg CD&I. No void yet Abductor pillow in place,SCD, Teds. Go od cms and denies numbness. lan of Care - Evelyn Billy, JOSE - 04/27/2015 6:06 PM PSTProblem: Patient Care Overview (Adult) Goal: Care Team Goals & Evaluation PROBLEM-RELATED GOALS: Will meet 75% of predicted goal of 2400 by 04/30/15. STRATEGY TO ACHIEVE GOALS: Instruct patient in the use of Incentive Spirometry and/or deep breath and cough. Nursing a nd Respiratory to work together to have patient use every hour while awake. Respiratory to m onitor progress 4 times daily until 75% goal met then turn over to nursing. RESTRAINT-RELATED GOALS: STRATEGIES TO ACHIEVE RESTRAINT GOALS: Outcome: Improving Goal Evaluation: Patient achieving 1000 of Predicted Level (mL) : 2400 Pt is on room air with a SpO2 of 94 % and a heart rate of 59. Breath sounds are clear. Pt has a good, nonproductive cough. Pt has a depth regular, pattern regular, unlabored. p Note - Lakisha greer, Jeff Matos MD - 04/27/2015 4:31 PM PSTTotal Hip Arthroplasty Operative Report Indications: Zeenat Harmon has severe osteoarthritis of the left hip with symptoms li miting function. After failing reasonable conservative measures, Zeenat Harmon elects to proceed with surgical treatment. Risk and benefits were discussed. Consent was obtained in the clinic. Pre-operative Diagnosis: Left hip osteoarthritis Post-operative Diagnosis: Left hip osteoarthritis Procedure: Left total hip arthroplasty Approach: Posterolateral Anesthesia: @ORANES@ Anesthesiologist: Valeriy Toney II, MD Screen Tender Helper: Louis Almanza Surgeon: Jeff Yeh MD Attending Attestation: I was present and scrubbed for the entire procedure. Child Protective Services Specialist: RAMSEY Scott. Note the assistant warehouse manager was necessary in performing this procedure. Findings: Advanced bone on bone arthrosis Estimated Blood Loss: 300 mL Drains: none Specimens: none Implants: Suzette M/L Taper stem size 11 with a -4/38 CoCr head. 55 mm Converge Cup with cl uster holes and a standard poly liner. ROM: leg lengthening less than 0.5 cm based on down leg technique and intra-operative radio graph. Stable to flexion internal rotation to 60 degrees. Stable in sleeping position. No impingement with extension and external rotation. Complications: none Procedure Details Zeenat Harmon was seen in the preoperative area. Surgical site was marked and identif ied. Appropriate antibiotic prophylaxis was given. The patient was taken to the operating ro om where successful @ORANES@ was performed. Patient was then positioned into lateral decubi tus position. The left hip area was then prepped and draped in usual sterile fashion. Trane xamic acid 1 gram was given intravenously. Posterolateral approach to the hip was made to ga in access to the hip joint. The pyriformis, short external rotators and posterior capsule we re reflected off the posterior greater trochanter prior to dislocation. Leg length was estim ated using down leg technique. Femoral neck osteotomy was performed based off the preoperati ve templated level. Acetabular retractor was then positioned. This was followed by circumfer ential labral resection. The acetabulum was gradually enlarged with sequential reaming until bleeding bone was encountered. A trial device was then positioned followed by placement of the final shell and trial liner. Femoral canal was identified and gradually enlarged with sequential broaching until proxima l fit was achieved. Trialing at this time demonstrated good soft tissue tension without ove r lengthening of affected leg. Stability was achieved with hyperflexion and internal rotati on. There were no impingement with extension and external rotation. Patient was stable in sleeping position. A cross-table AP pelvis film confirmed good component position and symme tric limb lengths. Trial components were removed. Acetabular fixation with enhanced with two screws, both with good purchase. Articular liner was locked into the acetabular component and was confirmed to be seated flush. The femoral component was inserted with excellent stability. Trialing ag ain showed -4 head was appropriate, was selected and placed on the clean and dry trunnion. H ip was gently reduced. Hip was thoroughly irrigated with saline. The second gram of tranexam ic acid was given intravenously. Posterior capsule and the pyriformis tendon were repaired t o the posterior aspect of the greater trochanter through drill holes using a #5 Ethibond sut ure. The fascia was then closed with interrupted suture followed by layered closure of subcu taneous tissue with 2-0 Vicryl and staple closure of the skin. The patient tolerated the pro cedure without any difficulty. Subsequently transferred to postanesthesia care unit in [facility] condition. POSTOPERATIVE PLAN: The patient will be allowed to weight bear as tolerated, ambulate with assistive device. Deep venous thrombosis prophylaxis using combination of mechanical and pha rmacologic means. Antibiotic prophylaxis for 24 hours. lan of Care - Tara Davila Chaplain - 04/27/2015 12:48 PM PSTProblem: Spiritual Distress, Risk/Actual (Adul t,Obstetrics,Pediatric) Goal: Spiritual Well-being Patient will demonstrate the desired outcomes by discharge/transition of care. Spiritual Care Zeenat Harmon is a 69 y.o. female who is admitted for Primary osteoarthritis of left hip [M16.12]. Spiritual Evaluation: I received an electronic referral that the patient had requested pray er before hip surgery. "Desi" was sitting on the edge of the gurney before undressing for blackburn rgery. , Chirag, sat nearby. Desi cheerfully welcomed a compensation intern visit. She said that s he is anxious to get the surgery over with so that she could get on with her life. She is a member of the [employer] in [place] and is comforted knowing that her community facilitator and [facility] friends are praying for her today. Spiritual Intervention: Offered pastoral presence and encouragement. Explained the locati on of the cafeteria Desi's and said that [facility] Shared prayer Spiritual Outcomes: The patient and her expressed their appreciation for the visit and prayer. Spiritual Goals/Follow-up: Follow if requested with pastoral support documented in this encounter Plan of Treatment + +------+--------+ + + | Name | Type | Priori | Associated Diagnoses | Order Schedule | | | | ty | | | + +------+--------+ + + | DME: Walker | DME | Routin | Status post total | DME 1 Time for 1 | | | | e | replacement of left | Occurrences starting | | | | | hip | 04/27/2015 until | | | | | | 04/27/2015 | + +------+--------+ + + documented as of this encounter Procedures + +--------+ + + + | Procedure Name | Priori | Date/Time | Associated Diagnosis | Comments | | | ty | | | | + +--------+ + + + | HEMOGLOBIN AND | Routin | 04/29/2015 | | Results for this | | HEMATOCRIT | e | 5:36 AM | | procedure are in the | | | | PST | | results section. | + +--------+ + + + | RESPIRATORY THERAPY | Routin | 04/28/2015 | | | | COMMUNICATION | e | 8:36 PM | | | | | | PST | | | + +--------+ + + + | EXTRA GREEN TOP TUBE | Routin | 04/28/2015 | | Results for this | | | e | 5:45 AM | | procedure are in the | | | | PST | | results section. | + +--------+ + + + | HEMOGLOBIN AND | Routin | 04/28/2015 | | Results for this | | HEMATOCRIT | e | 5:44 AM | | procedure are in the | | | | PST | | results section. | + +--------+ + + + | OXYGEN THERAPY | Routin | 04/27/2015 | | | | | e | 8:58 PM | | | | | | PST | | | + +--------+ + + + | XR PELVIS 1 OR 2 VW | STAT | 04/27/2015 | | Results for this | | | | 4:30 PM | | procedure are in the | | | | PST | | results section. | + +--------+ + + + | XR PELVIS 1 OR 2 VW | Routin | 04/27/2015 | | Results for this | | | e | 3:33 PM | | procedure are in the | | | | PST | | results section. | + +--------+ + + + | ARTHROPLASTY HIP | | 04/27/2015 | Primary | | | | | 2:02 PM | osteoarthritis of | | | | | PST | left hip | | + +--------+ + + + +---+--------+ | | | | | Specia | | | l | | | Needs | | | | | | Suzette | +---+--------+ documented in this encounter Results Hemoglobin and Hematocrit (04/29/2015 5:36 AM PST) + + + + + + | Component | Value | Ref Range | Performed | Pathologist | | | | | At | Signature | + + + + + + | Hemoglobin | 8.3 (L) | 11.5 - 16.0 | [facility] | | | | | g/dL | [facility] | | | | | | [facility] | | | | | | [facility] - | | | | | | LABORATORY | | + + + + + + | Hematocrit | 26.4 (L) | 34.0 - 47.0 % | [facility] | | | | | | [facility] | | | [facility] | | [facility] | | | | | | [facility] - | | | | | | LABORATORY | | + + + + + + + + | Specimen | + + | Blood | + + + + + + + | Performing | Address | City/State/Zipcode | Phone Number | | Organization | | | | + + + + + | [facility] | [address] | [place] | [phone] | | [facility] | | [address] | | | - LABORATORY | | | | + + + + + Extra Green Top Tube (04/28/2015 5:45 AM PST) + +-------+ + + + | Component | Value | Ref Range | Performed | Pathologist | | | | | At | Signature | + +-------+ + + + | Extra Green | Done | | [facility] | | | Top Tube | | | [facility] | | | | | [facility] | | | | | | CENTER - | | | | | | LABORATORY | | + +-------+ + + + + + | Specimen | + + | Blood | + + + + + + + | Performing | Address | City/State/Zipcode | Phone Number | | Organization | | | | + + + + + | [facility] | [address] | [place], [place] | [phone] | | [facility] | | [address] | | | - LABORATORY | | | | + + + + + Hemoglobin and Hematocrit (04/28/2015 5:44 AM PST) + + + + + + | Component | Value | Ref Range | Performed | Pathologist | | | | | At | Signature | + + + + + + | Hemoglobin | 10.3 (L) | 11.5 - 16.0 | [facility] | | | | | g/dL | [facility] | | | | | | MEDICAL | | | | | | CENTER - | | | | | | LABORATORY | | + + + + + + | Hematocrit | 32.5 (L) | 34.0 - 47.0 % | [facility] | | | | | | [facility] | | | | | | [facility] | | | | | | [facility] - | | | | | | LABORATORY | | + + + + + + + + | Specimen | + + | Blood | + + + + + + + | Performing | Address | City/State/Zipcode | Phone Number | | Organization | | | | + + + + + | [facility] | [address] | [place] | [phone] | | [facility] | | [address] | | | - LABORATORY | | | | + + + + + XR Pelvis 1 or 2 Vw (04/27/2015 4:30 PM PST) + + | Specimen | + + | | + + + + + | Narrative | Performed At | + + + | XR PELVIS 1 OR 2 VW 04/27/2015 4:30 PM HISTORY: post op. | [facility] | | COMPARISON: Multiple priors. FINDINGS: There has been interval | | | placement of hardware for left arthroplasty that is intact. The right | | | hip shows no acute findings. Bone mineralization is normal. Soft | | | tissues are unremarkable. IMPRESSION - Interval left hip | | | arthroplasty. Dictated and Signed by: Darvin Plata MD | | | Electronically signed: 04/27/2015 4:58 PM | | + + + + + | Procedure Note | + + | Doug, Rad Results In - 04/27/2015 5:01 PM PST XR PELVIS 1 OR 2 VW 04/27/2015 4:30 PM | | | | HISTORY: post op. | | | | COMPARISON: Multiple priors. | | | | FINDINGS: | | There has been interval placement of hardware for left arthroplasty that is | | intact. The right hip shows no acute findings. Bone mineralization is normal. | | Soft tissues are unremarkable. | | | | IMPRESSION - | | Interval left hip arthroplasty. 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 | + + documented in this encounter Administered Medications + +--------+ + +------+------+ | Medication Order | MAR | Action | Dose | Rate | Site | | | Action | Date | | | | + +--------+ + +------+------+ | acetaminophen (TYLENOL) tablet | Given | 04/27/20 | 1,000 mg | | | | 1,000 mg 1,000 mg, Oral, ONCE, | | 15 12:13 | | | | | Sun04/27/15 at 1215, For 1 dose, | | PM PST | | | | | Pre-op | | | | | | + +--------+ + +------+------+ +---+---+ | | | +---+---+ + +-------+ +--------+---+---+ | acetaminophen (TYLENOL) tablet | Given | 04/29/20 | 650 mg | | | | 650 mg 650 mg, Oral, EVERY 6 | | 15 5:17 | | | | | HOURS (4 times per day), First | | PM PST | | | | | dose on Sun04/27/15 at 1800, | | | | | | | Post-op/Phase II | | | | | | + +-------+ +--------+---+---+ +-------+ +--------+---+---+ | Given | 04/29/20 | 650 mg | | | | | 15 12:18 | | | | | | PM PST | | | | +-------+ +--------+---+---+ | Given | 04/29/20 | 650 mg | | | | | 15 6:11 | | | | | | AM PST | | | | +-------+ +--------+---+---+ +---+---+ | | | +---+---+ + +-------+ +--------+---+---+ | aspirin EC tablet 325 mg 325 | Given | 04/28/20 | 325 mg | | | | mg, Oral, DAILY, First dose on | | 15 7:11 | | | | | 04/28/15 at 0700, Do not cut | | AM PST | | | | | or crush. Give first dose within | | | | | | | 20 hours of surgery end time. | | | | | | | Nursing/Pharmacy to retime first | | | | | | | dose to 1900 for surgeries ending | | | | | | | between 2200 and 0900., | | | | | | | Post-op/Phase II | | | | | | + +-------+ +--------+---+---+ +---+---+ | | | +---+---+ + +-------+ +--------+---+---+ | aspirin EC tablet 325 mg 325 | Given | 04/30/20 | 325 mg | | | | mg, Oral, 2 TIMES DAILY, First | | 15 8:09 | | | | | dose (after last reorder) on Wed | | AM PST | | | | | 04/28/15 at 2100, Do not cut or | | | | | | | crush. Give first dose within 20 | | | | | | | hours of surgery end time. | | | | | | | Nursing/Pharmacy to retime first | | | | | | | dose to 1900 for surgeries ending | | | | | | | between 2200 and 0900., | | | | | | | Post-op/Phase II | | | | | | + +-------+ +--------+---+---+ +-------+ +--------+---+---+ | Given | 04/29/20 | 325 mg | | | | | 15 8:08 | | | | | | PM PST | | | | +-------+ +--------+---+---+ | Given | 04/29/20 | 325 mg | | | | | 15 8:28 | | | | | | AM PST | | | | +-------+ +--------+---+---+ +---+---+ | | | +---+---+ + +---------+ +-----+-------+---+ | ceFAZolin in dextrose (ANCEF) | New Bag | 04/28/20 | 2 g | 100 | | | IVPB 2 g 2 g, Intravenous, | | 15 7:17 | | mL/hr | | | Administer over 30 Minutes, EVERY | | AM PST | | | | | 8 HOURS INTERVAL, First dose on | | | | | | | 04/27/15 at 2200, For 2 | | | | | | | doses, Start 8 hours after | | | | | | | previous dose. Last dose to be | | | | | | | given within 24 hours of surgery | | | | | | | end time., Post-op/Phase II | | | | | | + +---------+ +-----+-------+---+ +---------+ +-----+-------+---+ | New Bag | 04/27/20 | 2 g | 100 | | | | 15 11:31 | | mL/hr | | | | PM PST | | | | +---------+ +-----+-------+---+ +---+---+ | | | +---+---+ + +-------+ +--------+---+---+ | celecoxib (celeBREX) capsule | Given | 04/27/20 | 200 mg | | | | 200 mg 200 mg, Oral, 2 TIMES | | 15 12:13 | | | | | DAILY, First dose on Sun04/27/15 | | PM PST | | | | | at 1215, Doses > 200 mg should | | | | | | | be given with meals., Pre-op | | | | | | + +-------+ +--------+---+---+ +---+---+ | | | +---+---+ + +-------+ +--------+---+---+ | celecoxib (celeBREX) capsule | Given | 04/30/20 | 200 mg | | | | 200 mg 200 mg, Oral, 2 TIMES | | 15 8:09 | | | | | DAILY, First dose on Sun04/27/15 | | AM PST | | | | | at 2100, Doses > 200 mg should | | | | | | | be given with meals., | | | | | | | Post-op/Phase II | | | | | | + +-------+ +--------+---+---+ +-------+ +--------+---+---+ | Given | 04/29/20 | 200 mg | | | | | 15 8:08 | | | | | | PM PST | | | | +-------+ +--------+---+---+ | Given | 04/29/20 | 200 mg | | | | | 15 8:29 | | | | | | AM PST | | | | +-------+ +--------+---+---+ +---+---+ | | | +---+---+ + +-------+ +--------+---+---+ | docusate sodium (COLACE) | Given | 04/30/20 | 100 mg | | | | capsule 100 mg 100 mg, Oral, 2 | | 15 8:09 | | | | | TIMES DAILY, First dose on Sun | | AM PST | | | | | 04/27/15 at 2100, First line | | | | | | | agent for constipation, | | | | | | | Post-op/Phase II | | | | | | + +-------+ +--------+---+---+ +-------+ +--------+---+---+ | Given | 04/29/20 | 100 mg | | | | | 15 8:08 | | | | | | PM PST | | | | +-------+ +--------+---+---+ | Given | 04/29/20 | 100 mg | | | | | 15 8:28 | | | | | | AM PST | | | | +-------+ +--------+---+---+ +---+---+ | | | +---+---+ + +-------+ +---------+---+---+ | HYDROcodone-acetaminophen | Given | 04/28/20 | 2 | | | | (NORCO) 5-325 mg per tablet 1-2 | | 15 7:10 | tablets | | | | tablet 1-2 tablet, Oral, EVERY 4 | | AM PST | | | | | HOURS PRN, Pain, Starting Tue | | | | | | | 04/27/15 at 1731, If ineffective | | | | | | | use [place] 10/325 if ordered. If | | | | | | | not tolerated, use Percocet then | | | | | | | Oxycodone if ordered., | | | | | | | Post-op/Phase II | | | | | | + +-------+ +---------+---+---+ +---+---+ | | | +---+---+ + +---------+ +---+-------+---+ | lactated ringers (LR) 500 mL | New Bag | 04/28/20 | | 250 | | | bolus Intravenous, Administer | | 15 11:46 | | mL/hr | | | over 2 Hours, ONCE, 04/28/15 | | AM PST | | | | | at 1200, For 1 dose | | | | | | + +---------+ +---+-------+---+ +---+---+ | | | +---+---+ + +---------+ +--------+ +---+ | lactated ringers (LR) infusion | New Bag | 04/27/20 | 1,000 | 50 mL/hr | | | at 10-100 mL/hr, Intravenous, | | 15 12:25 | mLs | | | | CONTINUOUS, Starting 04/27/15 | | PM PST | | | | | at 1215, TKO., Pre-op | | | | | | + +---------+ +--------+ +---+ +---+---+ | | | +---+---+ + +---------+ +---+-------+---+ | lactated ringers (LR) infusion | New Bag | 04/28/20 | | 100 | | | at 100 mL/hr, Intravenous, FIXED | | 15 11:21 | | mL/hr | | | VOLUME (see admin instruction), | | AM PST | | | | | Starting 04/27/15 at 1800, 2 | | | | | | | liters then discontinue, | | | | | | | Post-op/Phase II | | | | | | + +---------+ +---+-------+---+ +---------+ +---+-------+---+ | New Bag | 04/27/20 | | 100 | | | | 15 6:23 | | mL/hr | | | | PM PST | | | | +---------+ +---+-------+---+ +---+---+ | | | +---+---+ + + + +-------+---+---+ | metoprolol tartrate (LOPRESSOR) | Given by | 04/27/20 | 50 mg | | | | tablet 50 mg 50 mg, Oral, DAILY | Other | 15 6:33 | | | | | EVENING, First dose on Sun | | PM PST | | | | | 04/27/15 at 1800, Post-op/Phase | | | | | | | II | | | | | | + + + +-------+---+---+ +---+---+ | | | +---+---+ + +-------+ +------+---+---+ | morphine injection 2-8 mg 2-8 | Given | 04/27/20 | 2 mg | | | | mg, Intravenous, EVERY 2 HOURS | | 15 6:22 | | | | | PRN, Pain, Starting Sun04/27/15 | | PM PST | | | | | at 1731, Slow IV push, not faster | | | | | | | than 2 mg/minute. If ineffective | | | | | | | or not tolerated, use | | | | | | | hydromorphone IV if ordered., | | | | | | | Post-op/Phase II | | | | | | + +-------+ +------+---+---+ +---+---+ | | | +---+---+ + +-------+ +-------+---+---+ | pregabalin (LYRICA) capsule 75 | Given | 04/27/20 | 75 mg | | | | mg 75 mg, Oral, 2 TIMES DAILY, | | 15 12:13 | | | | | First dose on Sun04/27/15 at | | PM PST | | | | | 1215, Pre-op | | | | | | + +-------+ +-------+---+---+ +---+---+ | | | +---+---+ + +-------+ +-------+---+---+ | pregabalin (LYRICA) capsule 75 | Given | 04/30/20 | 75 mg | | | | mg 75 mg, Oral, 2 TIMES DAILY, | | 15 8:09 | | | | | First dose on Sun04/27/15 at | | AM PST | | | | | 2100, Post-op/Phase II | | | | | | + +-------+ +-------+---+---+ +-------+ +-------+---+---+ | Given | 04/29/20 | 75 mg | | | | | 15 8:08 | | | | | | PM PST | | | | +-------+ +-------+---+---+ | Given | 04/29/20 | 75 mg | | | | | 15 8:29 | | | | | | AM PST | | | | +-------+ +-------+---+---+ +---+---+ | | | +---+---+ + +-------+ +--------+---+---+ | senna (SENOKOT) tablet 8.6 mg | Given | 04/30/20 | 8.6 mg | | | | 8.6 mg, Oral, 2 TIMES DAILY, | | 15 8:09 | | | | | First dose on Sun04/27/15 at | | AM PST | | | | | 2100, If docusate ineffective or | | | | | | | not ordered, Post-op/Phase II | | | | | | + +-------+ +--------+---+---+ +-------+ +--------+---+---+ | Given | 04/29/20 | 8.6 mg | | | | | 15 8:08 | | | | | | PM PST | | | | +-------+ +--------+---+---+ | Given | 04/29/20 | 8.6 mg | | | | | 15 8:28 | | | | | | AM PST | | | | +-------+ +--------+---+---+ +---+---+ | | | +---+---+ documented in this encounter
--- OUTSIDE RECORDS SUMMARY | ~2019-12-03 | XMS | Encounter Summary ---
Demographics + + + | Address | [address] | | | [place] [address] | + + + | Home Phone | | + + + | Preferred Language | Unknown | + + + | Marital Status | | + + + | Jew Affiliation | Unknown | + + + | Race | Unknown | + + + | Ethnic Group | Unknown | + + + Author + + + | Author | [facility] | | | and [place] | + + + | Organization | 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 | | [phone] | | | | | hip [M16.12] | | Fax: | | | | | Procedures | | [phone] | | | | | DE TOTAL | | | | | | | HIP | | | | | | | ARTHROPLASTY | | | +--------+--------+ + + + + Encounter Details +--------+ + + + + | Date | Type | Department | Care Team | Description | +--------+ + + + + | 04/27/ | Anesthesia | [facility] | Valeriy Toney | | | 2015 | Event | [facility] | Ankur DAVIDSON MD [address] | | | | | [address] | [address] | | | | | [place] | [place] [address] | | | | | [address] | [phone] | | | | | [phone] | | | +--------+ + + + + Anesthesia Record + + + + + | Procedure Name | Responsible | Anesthesia Start | Anesthesia Stop Time | | | Anesthesiologist | Time | | + + + + + | Left Total Hip | Valeriy Ankur Toney | 04/27/15 1410 | 04/27/15 1623 | | Arthroplasty (Left | II, MD | | | | Hip) | | | | + + + + + +----+---+ + + | Da | T | Event | Comment | | te | i | | | | | m | | | | | e | | | +----+---+ + + | 12 | 1 | | | | /1 | 4 | | | | 5/ | 0 | | | | 20 | 1 | | | | 15 | | | | +----+---+ + + | | 1 | An Checkout | Pre-use anesthesia machine/equipment checkout. | | | 4 | | | | | 0 | | | | | 4 | | | +----+---+ + + | | 1 | An Start | Reassessment prior to anesthesia induction/procedure. | | | 4 | | | | | 1 | | | | | 0 | | | +----+---+ + + | | 1 | Antibiotic | | | | 4 | Given | | | | 1 | | | | | 2 | | | +----+---+ + + | | 1 | An Start | | | | 4 | Data | | | | 1 | | | | | 4 | | | +----+---+ + + | | 1 | an sara now | Attempted to place spinal at L4-5 and L3-4 with 25 and 22 g | | | 4 | | sara. Unable to get past lamina in midline and paramedian at | | | 2 | | both levels. Patient unable to sit level in bed due to habitus. | | | 2 | | Abandoned due to other analgesic/anesthetic methods available | | | | | and no need to persist with increased risk. | +----+---+ + + | | 1 | Preoxygenat | | | | 4 | ed | | | | 2 | | | | | 4 | | | +----+---+ + + | | 1 | An | | | | 4 | Induction | | | | 2 | | | | | 6 | | | +----+---+ + + | | 1 | An | | | | 4 | Intubation | | | | 2 | | | | | 7 | | | +----+---+ + + | | 1 | AN Bite | | | | 4 | Block | | | | 2 | | | | | 8 | | | +----+---+ + + | | 1 | [place] | | | | 4 | 43-degrees | | | | 3 | | | | | 8 | | | +----+---+ + + | | 1 | First | | | | 4 | Inc/Proc St | | | | 4 | | | | | 7 | | | +----+---+ + + | | 1 | [place] off | | | | 6 | | | | | 1 | | | | | 5 | | | +----+---+ + + | | 1 | An Stop | Patient handed off to recovery nurse. | | | 2 | | | | | 3 | | | +----+---+ + + +------+ | Meds | +------+ + + + | Name | Total | + + + | phenylephrine | 450 mcg | + + + | propofol | 180 mg | + + + | lidocaine 1% | 50 mg | + + + | fentaNYL | 100 mcg | + + + | dexmedetomidine (Bolus) | 20 mcg | + + + | morphine | 5 mg | + + + | ceFAZolin in dextrose (ANCEF) | 2 g | | IVPB 2 g | | + + + | tranexamic acid | 2,000 mg | + + + | LR (Infusion) | 1,200 mL | + + + + + | Name | + + | N2O Flow Rate (L/Min) | + + | O2 Flow Rate (L/Min) | + + | Insp O2 | + + | Exp SEV | + + | Exp SORIN | + + | Air Flow Rate (L/Min) | + + + + | No blood administrations on file. | + + +--------+ + + + | Type | Details | Placement | Removal | +--------+ + + + | Periph | 04/27/15; 1224; [id number] | 04/27/15 1224 by | 04/30/15 0904 by | | eral | catheter system; 20 gauge; | Sonali Currie, | Macie Godinez, | | IV | intradermal injection; 04/30/15; | RN | RN | | | 0904 | | | +--------+ + + + | Airway | Placement Date: 04/27/15; | 04/27/15 1427 by | 04/27/15 1623 by | | | Placement Time: 142; Mask | Valeriy Toney | Valeriy Toney | | | Ventilation: EZ; Successful | II, MD | II, MD | | | Technique: intub LMA; Attempts: | | | | | 1; Airway Type: cuffed, laryngeal | | | | | mask; Size: 6.5; Size: 4; | | | | | Trauma: none; Placement Check: | | | | | verified by capnography; | | | | | Placement Check: breath sounds | | | | | equal bilaterally, exhaled CO2 | | | | | detection device; Removal Date: | | | | | 04/27/15; Removal Time: 162 | | | +--------+ + + + | Read | 04/27/15; 1502; Left; hip; | 04/27/15 1502 by | 08/06/18 1342 by | | only - | 08/06/18 (Completed/Removed by | Power Dickson RN | User Epic | | | Utility); 1342 (Completed/Removed | | | | Incisi | by Utility) | | | | on | | | | +--------+ + + + documented in this encounter Social History + + + +--------+ + [...] + + documented as of this encounter OR Notes Anesthesia Postprocedure Evaluation - Valeriy Toney II, MD - 04/27/2015 5:43 PM PSTF ormatting of this note might be different from the original. ANESTHESIA POSTANESTHESIA EVALUATION Zeenat Harmon 69 y.o. female 1945 [id number] Procedure(s) Left Total Hip Arthroplasty (Left Hip) Filed Vitals: 04/27/15 1652 04/27/15 1705 04/27/15 1730 BP: 145/73 138/68 109/47 Pulse: 86 75 61 Temp: 35.7 C (96.3 F) Resp: 15 14 16 SpO2: 94% 94% 100% Cooperates? Yes Mental Status Performs simple tasks. Respiratory Satisfactory - Airway patent (self maintained). Cardiovascular Satisfactory Blood pressure and heart rate acceptable Temperature Satisfactory Pain Satisfactory N/V Control Satisfactory Hydration Satisfactory No signs of dehydration Complications None apparent Electronically signed by Valeriy Toney II, MD 04/27/2015 17:43 [facility] nesthesia Pre procedure Evaluation - Valeriy Toney II, MD - 04/27/2015 1:57 PM PSTFormatting of thi s note might be different from the original. ANESTHESIA PREANESTHESIA EVALUATION Zeenat Harmon 69 y.o. female 1945 [id number] Procedure(s): Left Total Hip Arthroplasty (Left Hip) Medical history, anesthesia, medications, allergy, NPO status verified histories reviewed. Review of Systems / Med History Anesthesia History (+) PONV. Cardiovascular (+) hypertension. Exercise tolerance <4 METS. Endocrine (+) hypothyroidism. Physical Exam Airway MP II, TM >3 FB, Mouth opening >2 FB. Neck: full ROM, extends >30 degrees. Jaw protrus ion normal. CV Rhythm regular. Rate normal. Anesthesia Plan ASA 3 Type: General. Induction: Intravenous. Potential problems: None anticipated. Monitors: Standard ASA monitors. Consent statement: . Consenting person understands and agrees to proceed. Electronically Signed by: Valeriy Toney II, MD ESig date/time: 04/27/2015 13:58 documented in this encounter Plan of Treatment Not on filedocumented as of this encounter Visit Diagnoses Not on filedocumented in this encounter Administered Medications + +--------+ +------+------+------+ | Medication Order | MAR | Action | Dose | Rate | Site | | | Action | Date | | | | + +--------+ +------+------+------+ | ceFAZolin in dextrose (ANCEF) | Given | 04/27/20 | 2 g | | | | IVPB 2 g 2 g, Intravenous, | | 15 2:12 | | | | | Administer over 30 Minutes, Prior | | PM PST | | | | | to Incision, Starting Tue | | | | | | | 04/27/15 at 1158, For 1 dose, | | | | | | | Give within one hour prior to | | | | | | | incision., Pre-op | | | | | | + +--------+ +------+------+------+ +---+---+ | | | +---+---+ + +-------+ +--------+---+---+ | dexmedetomidine (PRECEDEX) in | Given | 04/27/20 | 20 mcg | | | | sodium chloride bolus infusion | | 15 4:22 | | | | | Intravenous, PRN, Starting Tue | | PM PST | | | | | 04/27/15 at 1622, Anesthesia | | | | | | | Intra-op | | | | | | + +-------+ +--------+---+---+ +---+---+ | | | +---+---+ + +-------+ +---------+---+---+ | fentaNYL injection | Given | 04/27/20 | 100 mcg | | | | Intravenous, PRN, Pain, Starting | | 15 2:27 | | | | | 04/27/15 at 1427, Anesthesia | | PM PST | | | | | Intra-op | | | | | | + +-------+ +---------+---+---+ +---+---+ | | | +---+---+ + +---------+ +---+---+---+ | lactated ringers (LR) infusion | New Bag | 04/27/20 | | | | | Intravenous, CONTINUOUS PRN, | | 15 4:05 | | | | | Starting Sun04/27/15 at 1410, | | PM PST | | | | | Anesthesia Intra-op | | | | | | + +---------+ +---+---+---+ +---------+ +---+---+---+ | New Bag | 04/27/20 | | | | | | 15 2:10 | | | | | | PM PST | | | | +---------+ +---+---+---+ +---+---+ | | | +---+---+ + +-------+ +-------+---+---+ | lidocaine (PF) 1% injection | Given | 04/27/20 | 50 mg | | | | Intravenous, PRN, Starting Tue | | 15 2:24 | | | | | 04/27/15 at 1424, Anesthesia | | PM PST | | | | | Intra-op | | | | | | + +-------+ +-------+---+---+ +---+---+ | | | +---+---+ + +-------+ +------+---+---+ | morphine 10 mg/mL injection | Given | 04/27/20 | 5 mg | | | | Intravenous, PRN, Pain, Starting | | 15 2:50 | | | | | 04/27/15 at 1450, Anesthesia | | PM PST | | | | | Intra-op | | | | | | + +-------+ +------+---+---+ +---+---+ | | | +---+---+ + +-------+ +---------+---+---+ | phenylephrine (CARLOS-SYNEPHRINE) | Given | 04/27/20 | 150 mcg | | | | 10 mg/mL injection Intravenous, | | 15 4:05 | | | | | PRN, Starting 04/27/15 at | | PM PST | | | | | 1500, Anesthesia Intra-op | | | | | | + +-------+ +---------+---+---+ +-------+ +---------+---+---+ | Given | 04/27/20 | 150 mcg | | | | | 15 3:46 | | | | | | PM PST | | | | +-------+ +---------+---+---+ | Given | 04/27/20 | 150 mcg | | | | | 15 3:00 | | | | | | PM PST | | | | +-------+ +---------+---+---+ +---+---+ | | | +---+---+ + +-------+ +--------+---+---+ | propofol (DIPRIVAN) injection | Given | 04/27/20 | 100 mg | | | | Intravenous, PRN, Starting Tue | | 15 2:26 | | | | | 04/27/15 at 1415, Anesthesia | | PM PST | | | | | Intra-op | | | | | | + +-------+ +--------+---+---+ +-------+ +-------+---+---+ | Given | 04/27/20 | 40 mg | | | | | 15 2:24 | | | | | | PM PST | | | | +-------+ +-------+---+---+ | Given | 04/27/20 | 20 mg | | | | | 15 2:18 | | | | | | PM PST | | | | +-------+ +-------+---+---+ +---+---+ | | | +---+---+ + +-------+ + +---+---+ | tranexamic acid (CYKLOKAPRON) | Given | 04/27/20 | 1,000 mg | | | | injection Intravenous, | | 15 4:18 | | | | | Administer over 15 Minutes, PRN, | | PM PST | | | | | Starting 04/27/15 at 1420, | | | | | | | Anesthesia Intra-op | | | | | | + +-------+ + +---+---+ +-------+ + +---+---+ | Given | 1215/20 | 1,000 mg | | | | | 15 2:20 | | | | | | PM PST | | | | +-------+ + +---+---+ +---+---+ | | | +---+---+ documented in this encounter"
--- OUTSIDE RECORDS SUMMARY | ~2019-12-03 | XMS | Encounter Summary ---
Demographics + + + | Address | [address] | | | [place] [address] | + + + | Home Phone | | + + + | Preferred Language | Unknown | + + + | Marital Status | | + + + | Jainism Affiliation | Unknown | + + + | Race | Unknown | + + + | Ethnic Group | Unknown | + + + Author + + + | Author | [facility] | | | and [place] | + + + | Organization | [facility] | | | and [place] [...] Team Providers + +------+ + | Care Hatchery Worker Name | Role | Phone | + +------+ + | Bobyb Yoder MD | PCP | | + +------+ + Reason for Visit + +--------+ + | Reason | Onset | Comments | | | Date | | + +--------+ + | Hospital Follow-up | 05/03/ | | | | 2014 | | + +--------+ + Encounter Details +--------+ + + + + | Date | Type | Department | Care Team | Description | +--------+ + + + + | 05/03/ | Telephone | [facility] | Zoe Olson, | Hospital Follow-up | | 2015 | | [facility] | PharmD [address] | | | | | [address] [place] | [address] [place] | | | | | [place] [address] | [place] [address] | | | | | [phone] | [phone] | | +--------+ + + + + [...] + + documented as of this encounter Miscellaneous Notes Telephone Encounter - Zoe Olson PharmD - 05/03/2015 2:47 PM PSTHospital Follow-Up Pratik williamson Call Date discharged: 04/30/15 Date of Procedure: 04/27/15 Procedure Performed: Left total hip arthoplasty Education done/topics reviewed: 1. Health Status- "Doing just fine." Some swelling around ankle. 2. Diagnosis education- reviewed pts knowledge of primary diagnosis and provided additional education. - Are you up and walking? Yes - Feeling the start of an infection? No 3. Medication Reconciliation - Medications reconciled over the phone with patient looking at prescription bottles. 4. Pain Assessment- - Current pain score is 1 out of 10 when resting and 1 out of 10 during activities. - Sedation assessment: Pt reports that during daytime hours, they are not sleepy. - Side Effects: Pt reports the following side effects: none - Are your bowels moving? Yes -Signs of a DVT? No 5. Patient is not receiving home health services nor receiving physical therapy. 6. Reminded pt of scheduled follow-up appointment. 7. Reviewed what do in emergency as well as a non-emergent situation. Verified pt has doct or's contact information. Date of follow-up appointment with surgeon: 05/06 @[address] Yeh Phone call made by: Electronically signed by: Zoe Olson PHARMD 05/03/2015 14:53 documented in thi s encounter Plan of Treatment Not on filedocumented as of this encounter Visit Diagnoses Not on filedocumented in this encounter
--- OUTSIDE RECORDS SUMMARY | ~2019-12-03 | XMS | Clinical Summary ---
Demographics + + + | Address | [address] | | | [place] [address] | + + + | Home Phone | | + + + | Preferred Language | Unknown | + + + | Marital Status | | + + + | Uatsdin Affiliation | Unknown | + + + | Race | Unknown | + + + | Ethnic Group | Unknown | + + + Author + + + | Author | [facility] | | | and [place] | + + + | Organization | [facility] | | | and [...] Team Providers + +------+ + | Care Solar Water Heater Installer Name | Role | Phone | + +------+ + | Bobby Yoder MD | PCP | | + +------+ + Allergies No Known Allergies Medications + + + +---------+------+------+-------+ | Medication | Sig | Dispensed | Refills | Star | End | Statu | | | | | | t | Date | s | | | | | | Date | | | + + + +---------+------+------+-------+ | metoprolol | Take 50 mg by mouth | | 0 | | | Activ | | tartrate (LOPRESSOR) | every evening. | | | | | e | | 50 mg tablet | | | | | | | + + + +---------+------+------+-------+ | | Take 1 - 2 tablets | 30 | 0 | 12/1 | | Activ | | HYDROcodone-acetamin | by mouth EVERY 4 to | tablet | | 8/20 | | e | | ophen (NORCO) | 6 HOURS NEEDED | | | 15 | | | | 7.5-325 mg per | for Pain. | | | | | | | tablet | | | | | | | + + + +---------+------+------+-------+ | acetaminophen | Take 650 mg by mouth | | 0 | | | Activ | | (TYLENOL) 325 mg | every 4 hours as | | | | | e | | tablet | needed for Pain. | | | | | | + + + +---------+------+------+-------+ Active Problems Not on file Social History + + + +--------+ + [...] on file | | + + + Last Filed Vital Signs + + + [...] | | + + + + + Plan of Treatment + + +-------+ + | Health Maintenance | Due Date | Last | Comments | | | | Done | | + + +-------+ + | Vaccine: | | | | | Dtap/Tdap/Td (1 - | 5 | | | | Tdap) | | | | + + +-------+ + | Vaccine: Zoster (1 | | | | | of 2) | 6 | | | + + +-------+ + | Breast Cancer | | | | | Screening | 1 | | | + + +-------+ + | Vaccine: | | | | | Pneumococcal 65+ (1 | 1 | | | | of 1 - PPSV23) | | | | + + +-------+ + | Vaccine: Influenza | | | | | (#1) | 0 | | | + + +-------+ + Implants + +------+--------+ +--------+--------+--------+ | Implanted | Type | Area | Manufacture | Device | Shelf | Model | | | | | r | | Expira | / | | | | | | Identi | tion | Serial | | | | | | fier | Date | / Lot | + +------+--------+ +--------+--------+--------+ | Imp Hip Tot Acet Shell Cnvg | | Left: | KORI - | | 06/28/ | 5360-0 | | 55 - [id number]: Qty: | | Acetab | LIZETH | | 4 | 0-055 | | 1 on 04/27/2015 by Rao, | | angela | | | | / | | Jeff Matos MD at [facility] | | | | | | /[id number] | | [facility] | | | | | | 817 | + +------+--------+ +--------+--------+--------+ | Imp Hip Acet Lnr Drasl 38x46 | | Left: | KORI - | | 06/28/ | 4376-3 | | - [id number]: Qty: 1 | | Acetab | SHANEM | | 2020 | 8-055 | | on 04/27/2015 by Jeff Yeh | | ulum | | | | / | | MD Shawna at [facility] | | | | | | /[id number] | | [facility] | | | | | | 062 | + +------+--------+ +--------+--------+--------+ | Imp Hip Fem Stem M/L Std 11mm | | Left: | KORI - | | 01/11/ | 00-771 | | - [id number]: Qty: 1 | | Femur | ZIMM | | 5 | 1-011- | | on 04/27/2015 by Rao, | | | | | | 00 / | | Jeff Matos MD at [facility] | | | | | | /[id number] | | [facility] | | | | | | 226 | + +------+--------+ +--------+--------+--------+ | Screw Bone Trilogy 6.5x30mm - | | Left: | KORI - | | 04/12/ | 00-625 | | [id number]: Qty: 1 | | Acetab | ZIMM | | 5 | 0-065- | | on 04/27/2015 by Jeff Yeh | | ulum | | | | 30 / / | | MD Shawna at [facility] | | | | | | | | [facility] | | | | | | | + +------+--------+ +--------+--------+--------+ | Screw Bone Trilogy 6.5x35mm - | | Left: | KORI - | | 09/25/ | 00-625 | | [id number]: Qty: 1 | | Acetab | ZIMM | | 2024 | 0-065- | | on 04/27/2015 by Jeff Yeh | | ulum | | | | 35 / | | MD Shawna at [facility] | | | | | | /[id number] | | [facility] | | | | | | 058 | + +------+--------+ +--------+--------+--------+ | Imp Hip Fem Hd Cocr 38/-4mm - | | Left: | KORI - | | 04/27/ | 01.010 | | [id number]: Qty: 1 | | Femur | [facility] | | 2020 | 12.385 | | on 04/27/2015 by Jeff Yeh | | | | | | / | | [facility] | | | | | [id number] | | [facility] | | | | | | 04 | + +------+--------+ +--------+--------+--------+ Results Not on filefrom Last 3 Months Insurance + +--------+ +--------+ +---------+--------+ | Payer | Benefi | Subscriber | Effect | Phone | Address | Type | | | t Plan | ID | neno | | | | | | / | | Dates | | | | | | Group | | | | | | + +--------+ +--------+ +---------+--------+ | MEDICARE | MEDICA | [id number] | 11/12/19 | [phone] | | Medica | | | RE | | 11-Pre | 5 | | re | | | PART A | | sent | | | | | | AND B | | | | | | + +--------+ +--------+ +---------+--------+ | AARP | AARP | [id number] | 09/12/19 | [phone] | | Indrogelion | | | MDCR | | 14-Pre | 0 | | ity | | | SUPPL | | sent | | | | + +--------+ +--------+ +---------+--------+ + +--------+ +--------+ + + | Guarantor Name | Accoun | Relation to | Date | Phone | Billing Address | | | t Type | Patient | of | | | | | | | | | | + +--------+ +--------+ + + | Zeenat Harmon | Person | Self [birth year] [address] | | | al/Fam | | 1946 | [phone] | [place] | | | gautam | | | [address] (Home) | [phone] | + +--------+ +--------+ + + Advance Directives + + + + + | Type | Date Recorded | Patient | Explanation | | | | Hemotherapist | | + + + + + | Power of | | | | | Community Fundraiser | | | | + + + + + | Advance | 04/27/2015 | | | | Directive | 11:22 AM | | | + + + + + + + + + + | Code Status | Date | Date | Comments | | | Activated | Inactivated | | + + + + + | Full Code | 04/27/2015 | 04/30/2015 | | | | 5:31 PM | 12:32 PM | | + + + + +
--- OUTSIDE RECORDS SUMMARY | ~2019-12-03 | XMS | Encounter Summary ---
Demographics + + + | Address | [address] | | | [place] [address] | + + + | Home Phone | | + + + | Preferred Language | Unknown | + + + | Marital Status | | + + + | Mandaen Affiliation | Unknown | + + + | Race | Unknown | + + + | Ethnic Group | Unknown | + + + Author + + + | Author | [facility] | | | and [place] | + + + | Organization | [facility] | | | and [...] Team Providers + +------+ + | Care Band Reamer Machine Operator Name | Role | Phone [...] | | | | | | | [phone] | | | | | osteoarthrit | | Phone: | | | | | is of left | | [phone] | | | | | hip [M16.12] | | Fax: | | | | | Procedures | | [phone] | | | | | LA TOTAL | | | | | | | HIP | | | | | | | ARTHROPLASTY | | | +--------+--------+ + + + + Encounter Details +--------+---------+ + + + | Date | Type | Department | Care Team | Description | +--------+---------+ + + + | 04/27/ | Surgery | [facility] | Jeff Yeh MD | Left Total Hip | | 2014 | | MED CTR OR [facility] OP | [address] | Arthroplasty | | | | [address] | [place] | | | | | [place] | [address] | | | | | [address] | [phone] | | | | | [phone] | | | +--------+---------+ + + + Social History + + [...] + + + | Blood Pressure | 172/90 | 04/27/2015 11:00 AM | | | | | PST | | + + + + + | Pulse | 69 | 04/27/2015 11:00 AM | | | | | PST | | + + + + + | Temperature | 36.7 C (98.1 F) | 04/27/2015 11:00 AM | | | | | PST | | + + + + + | Respiratory Rate | 16 | 04/27/2015 11:00 AM | | | | | PST | | + + + + + | Oxygen Saturation | 95% | 04/27/2015 11:00 AM | | | | | PST | | + + + + + | Inhaled Oxygen | - | - | | | Concentration | | | | + + + + + | Weight | 117.9 kg (260 lb) | 04/27/2015 11:00 AM | | | | | PST | | + + + + + | Height | 170.2 cm (5' 7") | 04/27/2015 11:00 AM | | | | | PST [...] as directed on the separate Medication Reconciliation miguelina sampson. Typically you will resume your routine medications and in addition will have a prescripti on a pain pill. You will also take aspirin 325mg twice daily for four weeks. Please pick t his up at your pharmacy [id number], the enteric coated (EC) are preferred to [...] the appointment date and time by calling [phone] When to Seek Medical Attention Call 911 right awayif you have any of the following: Chest pain Shortness of breath Otherwise, call your doctor immediately if you have any of the following: Increased hip pain Pain or swelling in your calf or leg Fever .4For shaking chills Excessive swelling, increased drainage or redness around the incision Swelling, tenderness, or cramps in your leg Do not exceed 4,000 mg of acetaminophen (Tylenol) per day. Hydrocodone-acetaminophen ([place] ) and Oxycodone-acetaminophen (Percocet) have 325 mg [...] 3 days after discharge, contact the do ctor's office. documented in this encounter Medications at Time of Discharge + + + +---------+ + + | Medication | Sig | Dispensed | Refills | Start | End Date | | | | | | Date | | + + + +---------+ + + | | Take 1 - 2 tablets | 30 | 0 | /18/ | | | HYDROcodone-acetamin | by mouth [...] of this encounter Progress Notes Zoe Olson, ThoD - 04/30/2015 10:00 AM Rowena Harmon is [...] providers and keep list current. Zoe Olson PHARMEllie 04/30/2015 10:00 Meenakshi Mcgee PA-C - 04/29/2015 [...] (97.2 F) Oral 67 16 91 % 04/28/157 - - - - - 93 % [...] IV bolus completed Electronically signed by: Christiana Encinas RN 04/28/2015 14:11 Christiana Birmingham RN - [...] Oral 63 18 95 % - - 04/27/15 2100 126/59 mmHg - - 56 18 91 % - - 04/27/152009 - 35.9 C (96.6 F) Oral - - - - - 04/27/151999 128/61 mmHg - - 53 18 - - - 04/27/15 1833 131/57 mmHg - - 60 - - - - 04/27/15 1802 - - - 59 16 94 % [...] Jeff Yeh MD - 04/27/2015 2:18 PM [facility] INTERIM HISTORY AND PHYSICAL UPDATE Pt. Name/Age/: Zeenat Schmittkaycee 69 y.o. 1945 Date of admission: 04/27/2015 The current H&P was reviewed. The patient was reexamined. Re-evaluation of the patient co nfirms the necessity for the scheduled procedure. No change has occurred in the patient s condition since the H&P was completed less than 30 days ago. Electronically signed by: Jeff Yeh, 04/27/2015 14:19 [facility] Jeff Yeh MD at 04/27 2:19 PM RATNACoMeenakshi brown PA-C - 04/26/2015 8:30 AM PSTClinic Note [...] relief. PMH: PCP is Dr. Yoder in [place]. Obesity, hypertension and osteoarthritis PSH: Bilateral total knee arthroplasties: left side in 1996 in [place] and the right [place] [address] Butt here in [place] Allergies: None Medications: Metoprolol 50 mg p.o. [...] Lauro Webster PT, 04/30/2015 17:02 lan of Care - Stephenie Burns - 04/30/2015 10:47 AM PSTMet with patient today. IMM given and explained. She is up independent and will not have any other discharge needs. Her FWW was delivered yesterd aida. Her spouse will transport her home today. [...] healing. 4. PT and OT And nurse, SECRETARIAL TEACHER work with pt to increase mobility with [...] Lower Extremity Weight-Bearing: full weight-bearing Start Time: 835 Stop time: 848 Time Calculation: 13 minutes Missed Treatment Time: [...] about following precautions during turning Level of [place] : supervision required Assistive Device: 2 wheeled walker (FWW) Distance (feet): 200ft Gait Pattern Analysis: 2-point gait Gait Deviations: stride length decreased, weight-shifting ability decreased, jane decrea sed, step length decreased Transfers Pt using FWW safely and approapirately, without cues Sit-Stand, Level of [place]: modified independence Stand-Sit, Level of [place]: modified independence Pin-Rosrn-Mfu, Assistive Device: 2 wheeled walker (FWW) Maintain Weight Bearing Status: able to maintain weight bearing status Safety Issues: balance decreased during turns Impairments: strength decreased, impaired balance STG GOALS Bed Mobility Goal, Activity Type: supine to sit/sit to supine [place] Level: modified independence Assistive Device: bed rails Time to Achieve: 2 - 3 days Goal Status: not addressed Transfer Training Goal, Activity Type: bed to chair /chair to bed [place] Level: modified independence Assistive Device: 2 wheeled walker (FWW) Time to Achieve: 2 - 3 days Goal Status: not addressed Gait Training Goal, [place] Level: modified independence Assistive Device: 2 wheeled walker (FWW) Time to Achieve: 2 - 3 days Goal Status: progressing toward goal Stairs Goal, [place] Level: modified independence Number of Stairs: 4 [...] next treatment: discharge Electronically signed by: Blanca Rothman PT, 04/30/2015 8:56 lan of Care - [...] healing. 4. PT and OT And nurse, SECRETARIAL TEACHER work with pt to increase mobility with safety and following hip precautions. RESTRAINT-RELATED GOALS: STRATEGIES TO ACHIEVE RESTRAINT GOALS: Outcome: Improving Goal Evaluation: Pt c/o no pain or N/V. Follows hip precautions, and transfers, walks well SBA c FWW. No s/ s of infection. lan of Care - Shaun ry, Lauro Christie, PT - 04/29/2015 5:42 PM PSTProblem: Patient [...] healing. 4. PT and OT And nurse, SECRETARIAL TEACHER work with pt to increase mobility with [...] gait and stair training. See notes mare umellerMiguel Ángel Handed off to nursing after tx. Education: HEP review Patient Status/Goals: Reflects last filed data of patient status; may be from multiple contributors. Gait fww Level of [place] : supervision required Assistive Device: 2 wheeled walker (FWW) Distance (feet): 250 Gait Pattern Analysis: 2-point gait Gait Deviations: stride length decreased, weight-shifting ability decreased, jane decrea sed, step length decreased Stairs up and down 1x 6 in step with rail CGA for safety Transfers Pt using FWW safely and approapirately, without cues Bed-Chair, Level of [place]: supervision required, verbal cues required Chair-Bed, Level of [place]: supervision required [id number], Assistive Device: 2 wheeled walker (FWW) Sit-Stand, Level of [place]: supervision required Stand-Sit, Level of [place]: supervision required Mzy-[id number]-Dcs, Assistive Device: 2 wheeled walker (FWW) Toilet, Level of [place]: supervision required Toilet, Assistive Device: 2 wheeled walker (FWW) Maintain Weight Bearing Status: able to maintain weight bearing status Safety Issues: balance decreased during turns Impairments: strength decreased, impaired balance Bed Mobility supervsied with cues to use arms and strong leg to move effected leg. Assistive Device: bed rails Roll Left, Level of [place]: supervision required, verbal cues required Supine to Sit, Level of [place]: supervision required, verbal cues required Sit to Supine, Level of [place]: supervision required, verbal cues required Sidelying to Sit, Level of [place]: supervision required Sit to Sidelying, Level of [place]: supervision required Safety Issues: decreased use of legs for bridging/pushing Impairments: ROM decreased, pain, strength decreased Balance good Functional Endurance good ROM LLE limited by hip prec and pain Strength LLE limited by hip prec and pain STG GOALS Bed Mobility Goal, Activity Type: supine to sit/sit to supine [place] Level: modified independence Assistive Device: bed rails Time to Achieve: 2 - 3 days Goal Status: continued, progressing toward goal Transfer Training Goal, Activity Type: bed to chair /chair to bed [place] Level: modified independence Assistive Device: 2 wheeled walker (FWW) Time to Achieve: 2 - 3 days Goal Status: continued, progressing toward goal Gait Training Goal, [place] Level: modified independence Assistive Device: 2 wheeled walker (FWW) Time to Achieve: 2 - 3 days Goal Status: continued, progressing toward goal Stairs Goal, [place] Level: modified independence Number of Stairs: 4 Time to Achieve: 2 - 3 days Goal Status: continued, progressing toward goal Assessment: Pt doing well overall, will benefit from ongoing PT to incraese functional mobi lity and safety. Physical Therapy Anticipated Discharge Needs are: Have the anticipated discharge needs changed? yes - pt states she wants to go home tomorrow . butadiene compressor operator aware. Post discharge physical therapy recommendation: SUPERVISOR TOWER Plan for next treatment: 1P, JPM, FWW, progressive gait and mobility, Electronically signed by: Lauro Webster PT, 04/29/2015 17:40 lan of Care - Lauro Webster, PT - 04/29/2015 5:37 PM PSTProblem: Patient [...] healing. 4. PT and OT And nurse, SECRETARIAL TEACHER work with pt to increase mobility with [...] from multiple contributors. Gait fww Level of [place] : supervision required Assistive Device: 2 wheeled walker (FWW) Distance (feet): 100 Gait Pattern Analysis: 2-point gait Gait Deviations: stride length decreased, weight-shifting ability decreased, jane decrea sed, step length decreased Transfers CGA only because of gait belt use due to safety concern from last tx with BP low, no sympto ms of low BP today though and no addl asssist required. Bed-Chair, Level of [place]: supervision required, verbal cues required Chair-Bed, Level of [place]: supervision required Kre-[id number], Assistive Device: 2 wheeled walker (FWW) Sit-Stand, Level of [place]: supervision required Stand-Sit, Level of [place]: supervision required Gre-[id number]-[id number], Assistive Device: 2 wheeled walker (FWW) Toilet, Level of [place]: supervision required Toilet, Assistive Device: 2 wheeled walker (FWW) Maintain Weight Bearing Status: able to maintain weight bearing status Safety Issues: balance decreased during turns Impairments: impaired balance, strength decreased Bed Mobility supervsied with cues to use arms and strong leg to move effected leg. Assistive Device: bed rails Roll Left, Level of [place]: supervision required, verbal cues required Supine to Sit, Level of [place]: supervision required, verbal cues required Sit to Supine, Level of [place]: supervision required, verbal cues required Sidelying to Sit, Level of [place]: supervision required Sit to Sidelying, Level of [place]: supervision required Safety Issues: decreased use of legs for bridging/pushing Impairments: ROM decreased, pain, strength decreased Balance good Functional Endurance fair+ ROM LLE limited by hip prec and pain Strength LLE limited by hip prec and pain STG GOALS Bed Mobility Goal, Activity Type: supine to sit/sit to supine [place] Level: modified independence Assistive Device: bed rails Time to Achieve: 2 - 3 days Goal Status: continued Transfer Training Goal, Activity Type: bed to chair /chair to bed [place] Level: modified independence Assistive Device: 2 wheeled walker (FWW) Time to Achieve: 2 - 3 days Goal Status: continued Gait Training Goal, [place] Level: modified independence Assistive Device: 2 wheeled walker (FWW) Time to Achieve: 2 - 3 days Goal Status: continued Stairs Goal, [place] Level: modified independence Number of Stairs: 4 Time to Achieve: 2 - 3 days Goal Status: continued Assessment: Pt will cont to benefit from PT to increase fucntional moblity and begin stair training for home DC Physical Therapy Anticipated Discharge Needs are: Have the anticipated discharge needs changed? yes - Pt wants to DC home. Post discharge physical therapy recommendation: SUPERVISOR TOWER Plan for next treatment: 1P, JPM, FWW, progressive gait and mobility, Electronically signed by: Lauro Webster PT, 04/29/2015 17:34 lan of Care - [...] healing. 4. PT and OT And nurse, SECRETARIAL TEACHER work with pt to increase mobility with [...] healing. 4. PT and OT And nurse, SECRETARIAL TEACHER work with pt to increase mobility with [...] from multiple contributors. ADLs LB, Level of [place]: modified independence (Would benefit from use of regrind mill operator, but ca n complete LB w/ w/o. will assist as well as necessary. ) Assistive Device: regrind mill operator LB Dressing Assess/Train, Position: sitting LB Dressing Assess/Train, Impairments: ROM decreased (Posterior hip precautions) Toileting, Level of [place]: modified independence Assistive Device: grab bar Toileting Assess/Train, Position: sitting Toileting Assess/Train, Impairments: ROM decreased (Posterior hip precautions) Transfers Toilet, Level of [place]: modified independence Toilet, Assistive Device: 2 wheeled walker (FWW), grab bars Maintain Weight Bearing Status: able to maintain weight bearing status Safety Issues: (Has grab bar & sink @ home for stability next to toilet) Impairments: (Posterior hip precautions) STG Goals Transfer Training Goal, Activity Type: (Toilet, shower transfer mod I. ) [place] Level: modified independence Assistive Device: 2 wheeled walker (FWW), grab bars Time to Achieve: by discharge Goal Status: new Toileting Goal, [place] Level: modified independence Time to Achieve: by discharge Goal Status: met LB Dressing Goal, [place] Level: modified independence Adaptive Equipment: regrind mill operator, sock-aid Time to Achieve: by discharge Goal [...] 04/29/2015 12:04 lan of Care - Raghav Napoles, RN - 04/29/2015 3:56 AM PSTProblem: Patient [...] healing. 4. PT and OT And nurse, SECRETARIAL TEACHER work with pt to increase mobility with [...] healing. 4. PT and OT And nurse, SECRETARIAL TEACHER work with pt to increase mobility with [...] to room air, lungs clear lan of Car Pj Durant Shawna, OT - 04/28/2015 5:09 PM PSTFormatting of [...] Hip Arthroplasty; Surgeon: Jeff Yeh MD; Location: [facility] MAIN OR No Known Allergies Precautions/Limitations: falls [...] therapy recommendation: (To be determind) Equipment Recommendations: regrind mill operator, sock aide Identified Problems Needing Skilled Intervention: weakness s/p surgery, aerobic capacity/ endurance, gait, locomotion, and balance Planned Interventions:Planned Therapy Interventions: ADL retraining, strengthening, transfe r training Patient Status/Goals Reflects last filed data of patient status; may be from multiple contributors. FIM: ADLs Toileting, Level of [place]: minimum assist (75% patient effort), set up required Assistive Device: bedside commode Toileting Assess/Train, Position: sitting Toileting Assess/Train, Impairments: pain, strength decreased, sensation decreased IADLs Therapeutic Exercise Functional Endurance Cognitive Cognitive Tests Bed Mobility Assistive Device: bed rails Roll Left, Level of [place]: verbal cues required, minimum assist (75% patient effort) Safety Issues: decreased use of legs for bridging/pushing Impairments: ROM decreased, pain, strength decreased Transfers Sit-Stand, Level of [place]: minimum assist (75% patient effort), 2 person assist requ ired Stand-Sit, Level of [place]: minimum assist (75% patient effort), 2 person assist requ ired Tim-Ecccw-Jge, Assistive Device: 2 wheeled walker (FWW) Toilet, Level of [place]: minimum assist (75% patient effort), 2 person assist require d Toilet, Assistive Device: 2 wheeled walker (FWW), commode (drop arm) Safety Issues: balance decreased during turns, step length decreased Impairments: ROM decreased, pain, strength decreased Wheelchair Mobility Balance ROM Strength STG Goals Transfer Training Goal, Activity Type: shower chair, toilet, bed to chair /chair to bed [place] Level: modified independence Assistive Device: 2 wheeled walker (FWW) Time to Achieve: by discharge Goal Status: new Toileting Goal, [place] Level: modified independence Time to Achieve: by discharge Goal Status: new LB Dressing Goal, [place] Level: modified independence Adaptive Equipment: regrind mill operator, sock-aid Time to Achieve: by discharge Goal [...] healing. 4. PT and OT And nurse, SECRETARIAL TEACHER work with pt to increase mobility with [...] contributors. Gait FWW for safety Level of [place] : minimum assist (75% patient effort), 2 person assist required Assistive Device: 2 wheeled walker (FWW) Distance (feet): 8 Gait Pattern Analysis: 3-point gait Gait Deviations: jane decreased, double stance time increased, [id number]-fw-[id number] clearance de creased, limb motion velocity decreased, step length decreased, stride length decreased, str prem width increased, oomct-ge-[id number] ratio decreased, weight-shifting ability decreased Transfers Min A for safety and stability, extra person for safety with fww use and gait belt. Bed-Chair, Level of [place]: minimum assist (75% patient effort) Chair-Bed, Level of [place]: 2 person assist required, minimum assist (75% patient eff ort) [id number]-[id number], Assistive Device: 2 wheeled walker (FWW) Sit-Stand, Level of [place]: minimum assist (75% patient effort) Stand-Sit, Level of [place]: minimum assist (75% patient effort) [id number], Assistive Device: 2 wheeled walker (FWW) Maintain Weight Bearing Status: assist to maintain weight bearing status Safety Issues: balance decreased during turns, weight-shifting ability decreased, step jony th decreased Impairments: strength decreased, sensation decreased, impaired balance Bed Mobility Min A for LLE Assistive Device: bed rails Roll Left, Level of [place]: minimum assist (75% patient effort) Supine to Sit, Level of [place]: minimum assist (75% patient effort) Sit to Supine, Level of [place]: minimum assist (75% patient effort) Sidelying to Sit, Level of [place]: minimum assist (75% patient effort) Sit to Sidelying, Level of [place]: minimum assist (75% patient effort) Safety Issues: decreased use of legs for bridging/pushing Impairments: decreased flexibility, sensation decreased, strength decreased, impaired jim ce, unable to maintain weight bearing status Balance fair Functional Endurance fair ROM LLE limited by hip prec and pain Strength LLE limited by hip prec and pain STG GOALS Bed Mobility Goal, Activity Type: supine to sit/sit to supine [place] Level: modified independence Assistive Device: bed rails Time to Achieve: 2 - 3 days Goal Status: continued Transfer Training Goal, Activity Type: bed to chair /chair to bed [place] Level: modified independence Assistive Device: 2 wheeled walker (FWW) Time to Achieve: 2 - 3 days Goal Status: continued Gait Training Goal, [place] Level: modified independence Assistive Device: 2 wheeled walker (FWW) Time to Achieve: 2 - 3 days Goal Status: continued Stairs Goal, [place] Level: modified independence Number of Stairs: 4 [...] changed? no Post discharge physical therapy recommendation: SUPERVISOR TOWER Plan for next treatment: 2P, JPM, FWW, [...] healing. 4. PT and OT And nurse, SECRETARIAL TEACHER work with pt to increase mobility with [...] Hip Arthroplasty; Surgeon: Jeff Yeh MD; Location: [facility] No Known Allergies Precautions/Limitations: falls Left [...] attempt gait at this time. Level of [place] : unable to perform, not appropriate to [...] Device: bed rails Roll Left, Level of [place]: moderate assist (50% patient effort) Supine to Sit, Level of [place]: minimum assist (75% patient effort) Sit to Supine, Level of [place]: moderate assist (50% patient effort) Sidelying to Sit, Level of [place]: minimum assist (75% patient effort) Sit to Sidelying, Level of [place]: minimum assist (75% patient effort) Safety Issues: [...] Activity Type: supine to sit/sit to supine [place] Level: modified independence Assistive Device: bed rails Time to Achieve: 2 - 3 days Goal Status: new Transfer Training Goal, Activity Type: bed to chair /chair to bed [place] Level: modified independence Assistive Device: 2 wheeled walker (FWW) Time to Achieve: 2 - 3 days Goal Status: new Gait Training Goal, [place] Level: modified independence Assistive Device: 2 wheeled walker (FWW) Time to Achieve: 2 - 3 days Goal Status: new Stairs Goal, [place] Level: modified independence Number of Stairs: 4 [...] functional mobility training. Electronically signed by: Lauro Webster, PT, 04/28/2015 16:32 lan of Care - [...] yesterday for pra marko before hip surgery. Desi was sitting up in bed working on her meal menu. She was bright and cheerful and welcomed a lease examiner visit. Pat said that she is very happy with her surge ry and recovery so far and is appreciative of the care she is receiving from all the [facility] ers. She spoke of how much she loves the home where she has lived for 45 years and where s he raised her three children. Two daughters live in the area. A son is in [place], [place]. She is looking forward to going [...] planning: Patient lives with her spouse in [place]. Her PCP: Dr. Yoder. There is one step at the ent crys of her home and no steps within. She has a shower seat and walk in shower. She will ne ed a FWW and doesn't have a DME preference. This CM will use [facility]. Faxed orders to [facility]. R eceived the Communication Result Report; Result ok. Patient didn't attend joint class. Vishal lanza gets her medication through [facility]. Patient's spouse will transport her home at [...] healing. 4. PT and OT And nurse, SECRETARIAL TEACHER work with pt to increase mobility with [...] assessment. lan of Care - Sara Watson, INDOOR PLANT TECHNICIAN - 04/28/2015 5:35 AM PSTProblem: Patient Care [...] healing. 4. PT and OT And nurse, SECRETARIAL TEACHER work with pt to increase mobility with [...] healing. 4. PT and OT And nurse, SECRETARIAL TEACHER work with pt to increase mobility with [...] numbness. lan of Care - Evelyn Billy, INDOOR PLANT TECHNICIAN - 04/27/2015 6:06 PM PSTProblem: Patient Care [...] regular, pattern regular, unlabored. p Note - Jeff James MD - 04/27/2015 4:31 PM PSTTotal Hip [...] Anesthesia: @ORANES@ Anesthesiologist: Valeriy Toney II, MD Electronics Specialist: Louis Almanza Surgeon: Jeff Yeh MD Attending Attestation: I was present and scrubbed for the entire procedure. Telemarketer Supervisor: RAMSEY Scott. Note the bioinformatics assistant was necessary in performing this procedure. Findings: [...] Subsequently transferred to postanesthesia care unit in sta e condition. POSTOPERATIVE PLAN: The patient will be [...] Chirag, sat nearby. Desi cheerfully welcomed a lease examiner visit. She said that s he is anxious to get the surgery over with so that she could get on with her life. She is a member of the [employer] in [place] and is comforted knowing that her special machine operator and [facility] friends are praying for her today. Spiritual Intervention: Offered pastoral presence and encouragement. Explained the locati on of the cafeteria [facility] and said that [facility].. Shared prayer Spiritual [...] | + + + + + | [facility] | [address] | [place] | [phone] | | [facility] | | [id number] | | | - LABORATORY | | [...] ST. | [address] | [place] | [phone] | | [facility] | | [id number] | | | - LABORATORY | | [...] | | | | g/dL | [facility] | | | | | | [facility] | | | | | | [facility] - | | | | | | LABORATORY | | + + + + + + | Hematocrit | 32.5 (L) | 34.0 - 47.0 % | [facility] | | | | | [facility] | | | | | | [...] | + + + + + | [facility] | [address] | [place] | [phone] | | [facility] | | [id number] | | | - LABORATORY | | [...] | Procedure Note | + + | Gaston Camacho Results In - 04/27/2015 4:19 PM PST [...] + | Diagnosis | + + | Primary osteoarthritis of left hip Primary localized osteoarthrosis, pelvic region | | and thigh | + + documented in this encounter Administered Medications + +--------+ +--------+------+ + | Medication Order | MAR | Action | Dose | Rate | Site | | | Action | Date | | | | + +--------+ +--------+------+ + | bupivacaine 0.25%-EPINEPHrine | Given | 04/27/20 | 30 mLs | | Surgical | | 1:200,000 injection PRN, | | 15 4:08 | | | Site | | Starting 04/27/15 at 1501, | | PM PST | | | | | Intra-op | | | | | | + +--------+ +--------+------+ + +---+---+ | | | +---+---+ documented in this encounter
[~2019-12-03 06:46] MED LIST changes: +IRON18 MG PO; +VITAMIN D-32000 UNI1 PO
[2019-12-03] MEDS ORDERED: SPIRONOLACTONE1 EACH PO (07:09)
== END 2019-12-03 08:33 | disposition home or self-care (01) ==
LOC: ED 06:46
DX: K29.70 Gastritis, unspecified, without bleeding (principal); D64.9 Anemia, unspecified; I10 Essential (primary) hypertension; K21.9 Gastro-esophageal reflux disease without esophagitis; Z87.891 Personal history of nicotine dependence; Z88.8 Allergy status to other drugs, medicaments and biological substances; Z79.899 Other long term (current) drug therapy
CPT/HCPCS: 80053; 83735; 85025; 93005; 93010; 96374; 99284-25; J2405

== ENCOUNTER 2020-05-25 11:42 | Emergency (ER) | payer MEDICARE ==
[~2020-05-25] VITALS: Ht 170.2 cm; Wt 80.3 kg
[~2020-05-25 11:42] MED LIST changes: +SPIRONOLACTONE1 EACH PO
--- NOTE | 2020-05-25 16:29 | EKG ---
[facility] [address] [facility] [place], [place] [address] Signed Sinus rhythm with premature supraventricular complexes and with occasional premature ventricular complexes Possible Inferior infarct , age undetermined Abnormal ECG No previous ECGs available Confirmed by RACHEL MATIAS DO ([id number]) on 05/25/2020 4:29:33 PM Electronically Signed By: RACHEL MATIAS DO 05/25/20 1629 PATIENT NAME: JANELL CORREA Electrocardiogram DATE OF : 45 PHYSICIAN: RACHEL MATIAS DO REPORT #: [id number] REPORT IS CONFIDENTIAL AND NOT TO BE RELEASED WITHOUT AUTHORIZATION
== END 2020-05-25 17:50 | disposition home or self-care (01) ==
LOC: ED 11:42
DX: S06.2X9A Diffuse traumatic brain injury with loss of consciousness of unspecified duration, initial encounter (principal); D64.9 Anemia, unspecified; R74.8 Abnormal levels of other serum enzymes; W22.8XXA Striking against or struck by other objects, initial encounter; I10 Essential (primary) hypertension; K21.9 Gastro-esophageal reflux disease without esophagitis; Z87.891 Personal history of nicotine dependence; Z88.8 Allergy status to other drugs, medicaments and biological substances; Z79.899 Other long term (current) drug therapy
CPT/HCPCS: 70450; 70551; 80053; 83735; 84484; 85025; 93005; 93010; 99284-25

== ENCOUNTER 2020-06-03 11:11 | Emergency (ER) | payer MEDICARE ==
[~2020-06-03] VITALS: Ht 170.2 cm; Wt 78.5 kg
--- NOTE | 2020-06-05 13:32 | EKG ---
[facility] [address] [facility] [place] [address] Signed Sinus bradycardia Minimal voltage criteria for LVH, may be normal variant Inferior infarct (cited on or before 25-MAY-2020) Abnormal ECG When compared with ECG of 25-MAY-2020 11:56, premature ventricular complexes are no longer present premature supraventricular complexes are no longer present T wave inversion no longer evident in Lateral leads Confirmed by ROSE NARANJO MD ([id number]) on 06/05/2020 1:32:38 PM Electronically Signed By: ROSE NARANJO MD 06/05/20 1332 PATIENT NAME: JANELL CORREA EDA Electrocardiogram DATE OF : 45 PHYSICIAN: ROSE NARANJO MD REPORT #: [id number] REPORT IS CONFIDENTIAL AND NOT TO BE RELEASED WITHOUT AUTHORIZATION
== END 2020-06-03 13:58 | disposition home or self-care (01) ==
LOC: ED 11:11
DX: C71.9 Malignant neoplasm of brain, unspecified (principal); R42 Dizziness and giddiness; I10 Essential (primary) hypertension; K21.9 Gastro-esophageal reflux disease without esophagitis; Z88.8 Allergy status to other drugs, medicaments and biological substances; Z79.899 Other long term (current) drug therapy
CPT/HCPCS: 71046; 80053; 81001; 82378; 85025; 93005; 93010; 99284-25

== ENCOUNTER 2020-06-25 17:14 | Emergency (ER) | payer MEDICARE ==
[~2020-06-25] VITALS: Ht 170.2 cm; Wt 78.5 kg
[2020-06-25] MEDS ORDERED: DEXAMETHASONE4 MG PO (17:25)
[2020-06-25] MEDS ORDERED: ONDANSETRON HCL4 MG PO (17:25)
== END 2020-06-25 20:36 | disposition home or self-care (01) ==
LOC: ED 17:14
DX: R53.1 Weakness (principal); C34.92 Malignant neoplasm of unspecified part of left bronchus or lung; C34.91 Malignant neoplasm of unspecified part of right bronchus or lung; C22.8 Malignant neoplasm of liver, primary, unspecified as to type; C71.9 Malignant neoplasm of brain, unspecified; C17.9 Malignant neoplasm of small intestine, unspecified; I10 Essential (primary) hypertension; K21.9 Gastro-esophageal reflux disease without esophagitis; Z88.8 Allergy status to other drugs, medicaments and biological substances; Z79.899 Other long term (current) drug therapy
CPT/HCPCS: 80053; 81001; 83690; 85025; 99285